=== PATIENT | male | born 1985 | race Two or more races ===

== ENCOUNTER 2018-09-17 22:42 | Observation (INO) | payer OTHER ==
[2018-09-17] MEDS ORDERED: NS 0.9% 1000 ML** 1,000 ML IV ONE (23:00)
[2018-09-17] MEDS ORDERED: Morphine 4 MG/ML VIAL (1 ml) 4 MG/ML VIAL IV ONE (23:01)
[2018-09-17] MEDS ORDERED: Ketorolac INJ* 30 MG/ML 1 ML VIAL IV PUSH ONE (23:01)
[2018-09-17] MEDS ORDERED: Metoclopramide IV* 5 MG/ML 2 ML VIAL IV SLOW PU ONE (23:01)
--- NOTE | 2018-09-17 23:13 | ED ---
Abdominal Pain/Male - HPI Summary HPI Summary: This patient is a 33 year old female presenting to [facility] with a chief complaint of right flank pain. The patient was seen here yesterday diagnosed with a 5.3mm kidney stone. The patient states he has experienced increased pain, nausea, and vomiting since being discharged last night. He rates his pain 10/10 in severity. - History of Current Complaint Chief Complaint: EDFlankPain Stated Complaint: "RT SIDED ABD PAIN PER PT" Time Seen by Provider: 09/17/18 22:54 Hx Obtained From: Patient Timing: Intermittent Severity Initially: Severe Severity Currently: Severe Pain Intensity: 10 Pain Scale Used: 0-10 Numeric Radiates to: Flank - Allergies/Home Medications Allergies/Adverse Reactions: Allergies Allergy/AdvReac Type Severity Reaction Status Date / Time No Known Allergies Allergy Verified 09/17/18 22:47 PMH/Surg Hx/FS Hx/Imm Hx Endocrine/Hematology History: Denies: Hx Diabetes Cardiovascular History: Denies: Hx Coronary Artery Disease History: Denies: Hx Kidney Stones Infectious Disease History: No Infectious Disease History: Denies: Traveled Outside the [place] in Last 30 Days - Family History Known Family History: Negative: Cardiac Disease - Social History Alcohol Use: Rare Hx Substance Use: No Substance Use Type: Reports: None Hx Tobacco Use: No Smoking Status (MU): Never Smoked Tobacco Review of Systems Positive: Vomiting, Nausea Positive: flank pain All Other Systems Reviewed And Are Negative: Yes Physical Exam - Summary Physical Exam Summary: VITAL SIGNS: Reviewed. GENERAL: Patient is a well-developed and nourished MALE who is lying comfortable in the stretcher. Patient is not in any acute respiratory distress. HEAD AND FACE: No signs of trauma. No ecchymosis, hematomas or skull depressions. No sinus tenderness. EYES: PERRLA, EOMI x 2, No injected conjunctiva, no nystagmus. EARS: Hearing grossly intact. Ear canals and tympanic membranes are within normal limits. MOUTH: Oropharynx within normal limits. NECK: Supple, trachea is midline, no adenopathy, no JVD, no carotid bruit, no c- spine tenderness, neck with full ROM CHEST: Symmetric, no tenderness at palpation LUNGS: Clear to auscultation bilaterally. No wheezing or crackles. CVS: Regular rate and rhythm, S1 and S2 present, no murmurs or gallops appreciated. ABDOMEN: Soft, non-tender. No signs of distention. No rebound no guarding, and no masses palpated. Bowel sounds are normal. EXTREMITIES: FROM in all major joints, no edema, no cyanosis or clubbing. NEURO: Alert and oriented x 3. No acute neurological deficits. Speech is normal and follows commands. SKIN: Dry and warm Triage Information Reviewed: Yes Vital Signs On Initial Exam: Initial Vitals Temp Pulse Resp BP Pulse Ox 98.3 F 120 18 158/106 95 09/17/18 22:45 09/17/18 22:45 09/17/18 22:45 09/17/18 22:45 09/17/18 22:45 Vital Signs Reviewed: Yes Diagnostics - Vital Signs Vital Signs Temp Pulse Resp BP Pulse Ox 09/17/18 22:45 98.3 F 120 18 158/106 95 - Laboratory Lab Statement: Any lab studies that have been ordered have been reviewed, and results considered in the medical decision making process. Abdominal Pain Male Course/Dx - Course Course Of Treatment: This patient is a 33 year old male presenting to [facility] with a chief complaint of right flank pain. This patient was diagnosed with a 5.3 mm kidney stone yesterday. Dr. Morrison, Urology, called ahead of the visit and said he would place a stent tomorrow. Therefore the patient will be admitted for pain management pending the stent placement. Dr. Wiggins, hospitalist , accepted the patietn for admission. This plan was discussed with the patient and he was agreeable with this paln. - Diagnoses Provider Diagnoses: Urethral stone - Provider Notifications Discussed Care Of Patient With: Ephraim Morrison - Urology Instructed by Provider To: Other - Will place stent tomorrow. Discharge - Sign-Out/Discharge Documenting (check all that apply): Patient Departure - Admission Patient Received Moderate/Deep Sedation with Procedure: No - Discharge Plan Condition: Stable Disposition: ADMITTED TO [facility] Referrals: [facility] - Kar OSWALD [Z.BUSINESS, APPLICATION, OTHER] - - Attestation Statements Document Initiated by Scribe: Yes Documenting Scribe: Haris Eden Provider For Whom Scribe is Documenting (Include Credential): Stephanie Willams MD Scribe Attestation: Haris Saini, scribed for Stephanie Willams MD on 09/17/18 at 2319. Status of Scribe Document: Ready
[2018-09-17] MEDS ORDERED: Acetaminophen TAB* 325 MG PO PRN (23:16)
[2018-09-17] MEDS ORDERED: Ondansetron INJ* 2 MG/ML VIAL IV PRN (23:16)
[2018-09-17] MEDS ORDERED: Ketorolac INJ* 15 MG/ML 1 ML VIAL IV PUSH PRN (23:19)
[2018-09-17] MEDS ORDERED: Morphine INJ* 2 MG/ML 1 ML SYRINGE (TWO MG - NEW SYRINGE VERSION) IV PRN (23:21)
[2018-09-17] MEDS ORDERED: NS 0.9% 1000 ML** 1,000 ML IV SCH (23:30)
[2018-09-17 23:42] LABS: ABS Lymphocytes 0.9 10^3/ul (1.0-4.8); ABS Monocytes 0.9 10^3/ul (0-0.8); ABS Neutrophils 9.1 10^3/ul (1.5-7.7); Eosinophil % 0.4 %; Hematocrit 43 % (42-52); Hemoglobin 14.1 g/dL (14.0-18.0); Lymphocyte % 8.4 %; Mean Corpuscular HGB Conc 33 g/dL (31-36); Mean Corpuscular Hemoglobin 26 pg (27-31); Mean Corpuscular Volume 80 fL (80-94); Mean Platelet Volume 7.7 fL (7.4-10.4); Nucleated Red Blood Cells % 0.1; Platelet Count 299 10^3/uL (150-450); Red Blood Count 5.35 10^6 /uL (4.18-5.48); Red Cell Distribution Width 14 % (10.5-15)
[2018-09-18] LABS: BUN/Creatinine Ratio 12.7 (8-20); Calcium 9.6 mg/dL (8.6-10.3); EGFR African American 78.8 (>60); EGFR Non-African American 65.1 (>60)
[2018-09-18 00:39] LABS: Urine Appearance Cloudy; Urine Bacteria Absent (Absent); Urine Bilirubin Negative (Negative); Urine Blood 3+ (Negative); Urine Color Yellow; Urine Glucose Negative (Negative); Urine Ketones Negative (Negative); Urine Nitrite Negative (Negative); Urine Protein Negative (Negative); Urine Red Blood Cell 3+(>10/hpf) (Absent); Urine Specific Gravity 1.011 (1.010-1.030); Urine Urobilinogen Negative (Negative); Urine White Blood Cell 1+(6-10/hpf) (Absent)
[2018-09-18] MEDS ORDERED: cefTRIAXone(*) 1 GM in NS 0.9% 50 ML* 50 ML IVPB SCH (00:45)
--- NOTE | 2018-09-18 02:26 | HP ---
CC: Dr. Morrison; [facility] * HISTORY AND PHYSICAL: DATE OF ADMISSION: 09/17/18 PRIMARY CARE PROVIDER: [facility]. CHIEF COMPLAINT: Right flank pain. HISTORY OF PRESENT ILLNESS: Mr. Mckenzie is a 33-year-old male with history of nephrolithiasis, but he always was able to spontaneously pass the stone, who presented yesterday with right flank pain. He was prescribed Percocet and Flomax and advised to keep hydrated. He was discharged home at this point, but at home he continued to have intermittent pain that was constant in the afternoon hours of 09/17/18. Currently, the patient has received a dose of Toradol and the pain basically resolved. He describes the pain as right flank pain radiating to his right groin. He denies any nausea or vomiting. He had been afebrile. Yesterday, a CT scan showed right-sided ureteral stone, [address] Morrison was notified by Dr. Willams from the emergency department and asked medicine service to admit the patient. The plan is for the patient to undergone cystoscopy tomorrow morning. PAST MEDICAL HISTORY: 1. History of recurrent nephrolithiasis. 2. History of bicuspid aortic valve. MEDICATIONS: 1. Flomax 0.4 mg daily. 2. Percocet 10/325 mg 1 tablet every 8 hours p.r.n. ALLERGIES: No known drug allergies. FAMILY HISTORY: Both parents with hypertension and osteoarthritis. Father with history of bicuspid aortic valve also. 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 His surrogate decision maker is his , Nicole Chairez. The patient denies any tobacco, alcohol, or drug use. REVIEW OF SYSTEMS: Please see history of present illness. All the remaining 12 systems were reviewed with the patient and were otherwise negative. PHYSICAL EXAMINATION GENERAL: The patient is a very pleasant 33-year-old male who is in no acute distress, alert, awake, and oriented x3. VITAL SIGNS: Blood pressure of 147/86, heart rate of 90 and regular, respiratory rate 18, oxygen saturation 96% on room air, temperature 98.3. HEENT: Head: Atraumatic, normocephalic. Eyes: Pupils are equal, reactive to light and accommodation. Oropharynx clear. Mucosa moist. NECK: Supple. No JVD, no bruits bilaterally. RESPIRATORY: Clear to auscultation bilaterally. CARDIOVASCULAR: Regular rate and rhythm. No murmurs. ABDOMEN: Soft, nontender. Bowel sounds are present in all 4 quadrants. On evaluation of bilateral flanks, there is no CVA tenderness bilaterally. EXTREMITIES: There is no edema. Pulses are +2 bilaterally. No clubbing or cyanosis. NEUROLOGIC: On neuro evaluation, speech is clear. Cranial nerves II through XII grossly intact. Motor strength is 5/5 bilaterally. LABORATORY DATA/DIAGNOSTIC STUDIES: The patient's CBC showed a white blood cell count of 11.0, hemoglobin of 14.1, hematocrit 43, and platelets 299. The patient's chemistry was obtained yesterday, it showed sodium of 138, potassium 3.6, chloride 104, carbon dioxide 26, BUN 13, creatinine 1.03. Today's chemistry is still pending. The patient's liver function profile was basically unremarkable with slight elevation of ALT of 61. Urinalysis from yesterday showed crusty blood and otherwise unremarkable. CT obtained yesterday of the abdomen and pelvis, impression, "there is a 5 mm x 3 mm calculus in the right ureter with right hydronephrosis at the L3-L4 level. Other nonobstructive calculi are noted in the right kidney and left kidney. Left kidney shows no hydronephrosis." ASSESSMENT AND PLAN: As follows: 1. The patient has obstructing right-sided ureteral calculus with hydronephrosis. The patient is going to be placed on overnight observation with cystoscopy planned with Dr. Morrison in the morning. He is going to be placed on n.p.o. and treated with intermittent Toradol. I will place the patient on intravenous hydration. The patient meets SIRS criteria, but I do not believe he is septic. I suspect his heart rate is due to pain. Nevertheless, blood cultures will be obtained. The patient is going to receive 1 empiric dose of ceftriaxone. I do not believe that he needs bolusing with IV fluids beyond the 1 L that he received in the ED, but he is going to be placed on continuous intravenous hydration. 2. With DVT prophylaxis, the patient is going to be placed on ambulation as tolerated. He is low risk. TIME SPENT: Approximately 65 minutes were spent on admission of this patient, more than half of that time was spent [id number] with the patient during the interview and physical exam. [id number]/[facility] #: [id number] KODAK
[2018-09-18] MEDS ORDERED: Dexamethasone IV* 4 MG/ML 1 ML (4 MG) IV SLOW PU ONE (08:11)
[2018-09-18] MEDS ORDERED: Famotidine IV* 10 MG/ML 2 ML (20 mg) IV ONE (08:11)
[2018-09-18] MEDS ORDERED: Buffered Lidocaine 1% SYRIN* 1 ML/SYRINGE INTRADERM ONE (08:11)
[2018-09-18] MEDS ORDERED: Lactated Ringers 1000 ML Bag* 1,000 ML IV SCH ×2 (09:00→11:15)
[2018-09-18] MEDS ORDERED: cefTRIAXone(*) 1 GM ADVAN/BAG ONE (09:30)
[2018-09-18] MEDS ORDERED: Dexamethasone IV* 4 MG/ML 1 ML (4 MG) ONE (09:30)
[2018-09-18] MEDS ORDERED: Famotidine IV* 10 MG/ML 2 ML (20 mg) ONE (09:31)
[2018-09-18] MEDS ORDERED: Midazolam* 1 MG/ML 2 ML VIAL (2 MG) ONE (09:50)
[2018-09-18] MEDS ORDERED: fentaNYL* 50 MCG/ML 2 ML VIAL (100 MCG VIAL) ONE (09:50)
[2018-09-18] MEDS ORDERED: Iohexol 180 (CONTRAST) 10 ML SDV IV ONE (10:10)
[2018-09-18] MEDS ORDERED: Propofol* 10 MG/ML 20 ML BTL ONE (10:24)
[2018-09-18] MEDS ORDERED: Lidocaine 2% PF * 5 ML VIAL ONE (10:24)
[2018-09-18] MEDS ORDERED: Ketorolac INJ* 30 MG/ML 1 ML VIAL ONE (10:47)
[2018-09-18] MEDS ORDERED: Ondansetron INJ* 2 MG/ML VIAL ONE (10:47)
[2018-09-18] MEDS ORDERED: DiMENhydriNATE IV* 50 MG/ML VIAL IV PUSH PRN (11:02)
[2018-09-18] MEDS ORDERED: Naloxone* 0.4 MG/ML 1 ML VIAL IV PRN (11:02)
[2018-09-18] MEDS ORDERED: fentaNYL* 50 MCG/ML 2 ML VIAL (100 MCG VIAL) IV PRN (11:02)
[2018-09-18] MEDS ORDERED: oxyCODONE/Acetamin 5/325 MG* TAB PO PRN (11:15)
[2018-09-18 12:20] VITALS: BP 126/82
--- NOTE | 2018-09-18 16:07 | OP ---
DATE OF OPERATION: 09/18/18 - ROOM #339 DATE OF : 81 SURGEON: Ephraim Morrison MD ANESTHESIOLOGIST: Dr. Ricco Rutledge. ANESTHESIA: General. PRE-OP DIAGNOSES: 1. Right renal colic. 2. Proximal right ureteral calculus (6 mm). POST-OP DIAGNOSIS: 1. Right renal colic. 2. Proximal right ureteral calculus (6 mm). OPERATIVE PROCEDURE: 1. Cystoscopy. 2. Right retrograde pyelography. 3. Insertion of right ureteral stent (6-Panamanian). INDICATIONS: Mr. Mckenzie is a 33-year-old male who is a known stone former who presented to the emergency room two days ago with symptoms of right renal colic. He did not have any fever or chills. Non-contrast CT of the abdomen and pelvis showed a 6 x 3 mm calculus in the proximal right ureter associated with mild hydronephrosis. No other abnormalities were noted. Patient was given tamsulosin and pain medications and discharged home. He came back last night with recurrence of this severe renal right colic and was admitted by the hospitalist service for pain control, hydration and observation for possible sepsis. He has been afebrile. A KUB done this morning did not clearly show a calculus. He has not passed his stone. Because of the above history and findings, patient is taken to the operating room for right ureteral stent placement. PATHOLOGY AT CYSTOSCOPY: The penile and bulbar urethrae looked normal. The prostatic urethra was short and open. Examination of the bladder showed normal mucosa. The ureteral orifices looked normal without any edema. No calculi or diverticula or bladder lesions were seen. Upon right retrograde pyelography, there was mild to moderate right hydronephrosis and hydroureter. At fluoroscopy, a calcification was noted in the proximal right ureter about 2- 3 cm distal to the ureteropelvic junction that might represent a calculus. DESCRIPTION OF PROCEDURE: After successful general anesthesia, the patient was placed in the lithotomy position and was prepped and draped for a cystoscopy. Cystoscopy was performed. The bladder was inspected and the above findings were noted. A flexible tip guidewire was then introduced into the right orifice and passed without difficulty into the area of the renal pelvis. An open-ended catheter was fed on top of the guide wire and retrograde pyelography was performed. The above findings were noted. A size 6-Panamanian stent was then placed with the proximal end coiling in the renal pelvis and the distal end coiling inside the bladder. There was good drainage of contrast from the kidney and no extravasation. The patient tolerated the procedure well and left the operating room in good condition. PLAN: To obtain a KUB postoperatively. The patient will need to be brought back in for definitive treatment of the stone. [id number]/[facility] #: [id number] MTDD
--- NOTE | 2018-09-18 20:50 | DS ---
CC: [facility]; Dr. Ephraim Morrison * DISCHARGE SUMMARY: DATE OF ADMISSION: 09/17/18 DATE OF DISCHARGE: 09/18/18 PRIMARY CARE PROVIDER: [facility]. UROLOGIST: Dr. Ephraim Morrison. ATTENDING PHYSICIAN: Dr. Haris Jones * (dictated by Lauren Elias NP). PRIMARY DIAGNOSIS: Right-sided obstructing ureteral calculus with resulting hydronephrosis, status post ureteral stent placement. SECONDARY DIAGNOSES: None. STUDIES WHILE IN THE HOSPITAL: 1. KUB on reads as bilateral small renal calculi without radiographically apparent hydronephrosis or large calcifications overlying the expected location of either ureter or the urinary bladder. 2. KUB on 09/18/18 reads as . The report is not back yet. HISTORY OF PRESENT ILLNESS AND HOSPITAL COURSE: Mr. Mckenzie is a 33-year-old male with past medical history of recurrent nephrolithiasis, who presented to the emergency room on 09/17/18 after being instructed to come to the emergency room by Dr. Morrison. Please see the history and physical by Dr. Wiggins for a complete summary of the events leading up to this hospitalization. In short, the patient has a long history of nephrolithiasis, though typically spontaneously passed his stones. He went to the emergency room on 09/16/18, at which point he was diagnosed with right- sided nephrolithiasis. He was prescribed Percocet and Flomax and discharged home. He continued to have significant pain. Ultimately, Dr. Willams, from the emergency department notified Dr. Morrison of the results of the CT scan from 09/16/[address] Morrison asked the hospitalist service to admit the patient. I will note that the abdomen and pelvis CT from 09/16/18 reads as "there is a 5 mm x 3 mm calculus in the right ureter with right hydronephrosis at the L3-L4 level. Other nonobstructing calculi are noted in the right kidney and left kidney. Left kidney shows no hydronephrosis. Hepatic steatosis is present." The patient had lab work, which was remarkable for a white blood cell count of 11 and a mildly elevated creatinine at 1.2. It appears as though the patient's baseline is around 1.1. He did have a urinalysis, which showed white blood cells and red blood cells, though no bacteria or nitrites. He was noted to have some tachycardia. Ultimately, there was little concern for infection as it is presumed that the tachycardia was simply a response secondary to pain as this resolved with the resolution of pain. The patient had an uneventful night and as of this morning reported feeling well. He reported that his pain which was previously a 10/10 was now completely resolved. He had very mild tenderness to palpation of the right upper and lower quadrants. He was taken to the OR this morning by Dr. Morrison, who placed a right ureteral stent. The operative report is not available at the time of this dictation, though I did speak with Dr. Morrison, who advised that the patient tolerated the procedure well and advised that the patient was stable for discharge home after obtaining a second KUB. The patient is feeling well and is anxious to return home. Physical assessment is benign other than the mild abdominal tenderness. All vital signs have normalized. Mr. Mckenzie is stable for discharge today. Most recent vitals are as follows: Temp 97.6, heart rate 66, respiratory rate 16, oxygen saturation 96% on room air, blood pressure 126/82. DISCHARGE MEDICATIONS: Continued medication: Tamsulosin 0.4 mg p.o. daily. Discontinued medication: Percocet. DISCHARGE PLAN: Mr. Mckenzie will be discharged home. Activity will be as tolerated. Diet will be regular as tolerated. The patient should be sure to keep adequately hydrated. Medications are noted above. The patient can continue Flomax at this point until otherwise directed by Dr. Morrison. He can stop taking Percocet due to the absence of pain at this point. He will need to follow up with his primary care provider in 4 to 7 days and will need to follow up with Dr. Morrison in the next few weeks. Dr. Morrison advised that his office would call the patient for an appointment. The patient should return to the emergency room or nearest hospital for any worsening of symptoms, shortness of breath, lightheadedness, dizziness, chest discomfort, high fever, chills, night sweats, loss of consciousness, or any other worrisome signs or symptoms. DISCHARGE CONDITION: Stable. DISCHARGE DISPOSITION: Home. This is a summarized report of a complex medical history and hospital stay. For further details, please see the entire medical record. TIME SPENT: Approximately 40 minutes was spent on this discharge. LAUREN ELIAS, BESSEMER CONVERTER OPERATOR [id number]/[facility] #: [id number] [facility]
== END 2018-09-18 17:03 | disposition home or self-care (01) ==
LOC: ED 22:42 → SSU 23:16
PROVIDERS: ADMIT Internal Medicine; ATTEND Internal Medicine
DX: N23 Unspecified renal colic (principal); N20.1 Calculus of ureter; Z87.74 Personal history of (corrected) congenital malformations of heart and circulatory system; R11.2 Nausea with vomiting, unspecified; R10.84 Generalized abdominal pain
CPT/HCPCS: 36415; 74018; 74420; 80048; 81003; 81015; 83605; 85025; 87040; 87086; 96361; 96365; 96367; 96375; 99283; C1876; G0378; J0696; J1100; J1885; J2250; J2270; J2405; J2704; J2765; J3010

== ENCOUNTER 2018-09-29 08:11 | Day surgery (SDC) | payer OTHER ==
--- NOTE | 2018-09-21 22:28 | HP ---
HISTORY AND PHYSICAL: DATE OF PLANNED ADMISSION AND SURGERY: 09/29/18 HISTORY OF PRESENT ILLNESS: Mr. Mckenzie is a 33-year-old male who is admitted with a right ureteral calculus, status post placement right ureteral stent, for cystoscopy, right uteroscopy, laser lithotripsy and right ureteral stent exchange. Mr. Mckenzie is a known stone former and had in the past passed ureteral calculi spontaneously. He presented to the ER about 2 weeks ago with symptoms of right renal colic. Non-contrast CT showed a 6 mm calculus in the proximal right ureter. The patient was initially managed conservatively with tamsulosin and pain medications but the pain persisted and he had to be admitted for IV fluid and pain control. On 09/18/18, he underwent cystoscopy and insertion of right ureteral stent. He did very well postoperatively except for the stent discomfort. KUB done postoperatively showed the right ureteral stent in good position and there was a possible radiopaque calculus noted in the mid to proximal right ureter along the ureteral stent. Renal ultrasound done in the office showed the right stent in good position and no calculi seen in the right kidney confirming that the calculus is in the ureter. The patient is now admitted for right ureteroscopy and stone extraction. PAST MEDICAL HISTORY AND SYSTEM REVIEW: The patient has history of bicuspid aortic valve. He is otherwise in excellent health. He is on no chronic medications and he denies any allergies to medications. FAMILY HISTORY: Relevant for both parents who have hypertension. No history of renal calculi. SOCIAL HISTORY: He is a nonsmoker and does not use alcohol or illicit drugs. 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 PHYSICAL EXAMINATION GENERAL: A pleasant, healthy looking male. VITAL SIGNS: Blood pressure 120/80, pulse of 90. HEART: Regular and rhythmic. No murmurs. LUNGS: Clear. ABDOMEN: Soft. No masses, no tenderness. Mild right CVA tenderness. IMPRESSION: Right ureteral calculus, status post placement, right ureteral stent. PLAN: Right ureteroscopy, laser lithotripsy and right ureteral stent exchange. I discussed the above plans with the patient. All his questions were answered. [id number]/[facility] #: [id number] MTDD
[~2018-09-29 08:11] MED LIST: Buffered Lidocaine 1% SYRIN* 1 ML/SYRINGE INTRADERM ONE; Lactated Ringers 1000 ML Bag* 1,000 ML IV SCH; Sodium Citrate/Citric Acid* 15 ML UDC PO ONE
[2018-09-29] MEDS ORDERED: cefTRIAXone(*) 2 GM ADDV.VIAL IVPB ONE (08:38)
[2018-09-29] MEDS ORDERED: Sodium Citrate/Citric Acid* 15 ML UDC ONE (08:38)
[2018-09-29] MEDS ORDERED: Iohexol 180 (CONTRAST) 10 ML SDV IV ONE (09:58)
[2018-09-29] MEDS ORDERED: Propofol* 10 MG/ML 20 ML BTL ONE (10:14)
[2018-09-29] MEDS ORDERED: Lidocaine 2% PF * 5 ML VIAL ONE (10:14)
[2018-09-29] MEDS ORDERED: fentaNYL* 50 MCG/ML 2 ML VIAL (100 MCG VIAL) ONE (10:19)
[2018-09-29 12:26] VITALS: BP 111/91
--- NOTE | 2018-09-29 12:35 | OP ---
OPERATIVE REPORT: DATE OF OPERATION: 09/29/18 DATE OF : 81 SURGEON: Eprhaim Morrison MD ANESTHESIOLOGIST: Augusto Fung DO ANESTHESIA: General. PRE-OP DIAGNOSES: 1. Right ureteral calculus. 2. Status post placement right ureteral stent. POST-OP DIAGNOSES: 1. Right ureteral calculus. 2. Status post placement right ureteral stent. OPERATIVE PROCEDURE: 1. Cystoscopy, right ureteroscopy, and extraction of right ureteral calculus. 2. Right retrograde pyelography and insertion of right ureteral stent (6-[place]er ). INDICATIONS: Mr. Mckenzie is a 33-year-old male who is a known stone former and who was admitted about 2 weeks ago with symptoms of right renal colic and was noted to have a 6-mm calculus in the proximal right ureter. He had urgent placement of right ureteral stent. He did well postoperatively. Followup KUB did not clearly show the calculus, however, renal ultrasound showed no calculus in the renal pelvis indicating the calculus is in the ureter. The patient is admitted for stone extraction. PATHOLOGY AT CYSTOSCOPY: The penile and bulbar urethrae look normal. The distal limb of the stent was seen coming from the right ureteral orifice. There was the expected edema of the bladder mucosa adjacent to the stent. Upon right ureteroscopy, a 6 mm calculus that had the gross appearance of a calcium oxalate stone was noted in the mid ureter. Retrograde pyelography showed minimal fullness. DESCRIPTION OF PROCEDURE: After successful general anesthesia, the patient was placed in the lithotomy position and was prepped and draped for cystoscopy. Cystoscopy was performed and the bladder was inspected and the above findings were noted. The distal limb of the stent was pulled out to the level of the urethral meatus. A flexible tip guidewire was introduced into the lumen of the stent and positioned in the area of the renal pelvis with fluoroscopy guidance. A 6.5-[place] Islander semi-rigid tapered ureteroscope was then introduced inside the bladder. The flexible tip basket was introduced through the port of the urethroscope and its flexible tip was introduced into the right ureter alongside the guidewire. That allowed for atraumatic introduction of the ureteroscope inside the ureter. The calculus was noted in the mid ureter. It was engaged with the basket. Because of the passive dilation of the ureter from the presence of the stent, the stone was extracted with no trauma to the ureter without having to fragment it first. Retrograde pyelography was then performed. A 6-[place] Islander stent was then placed with the proximal end coiling in the renal pelvis and the distal end coiling inside the bladder. There was good drainage of contrast from the kidney and no extravasation. The patient tolerated the procedure well and left the operating room in good condition. The plan is to see the patient next week in the office and the stent will be removed. [id number]/[facility] #: [id number] KODAK
== END 2018-09-29 12:27 | disposition home or self-care (01) ==
LOC: OR 08:11
PROVIDERS: ATTEND Urology
DX: N20.1 Calculus of ureter (principal); Z87.442 Personal history of urinary calculi; Q23.1 Congenital insufficiency of aortic valve; E78.5 Hyperlipidemia, unspecified
CPT/HCPCS: 74420; 82365; 88300; A9270-GY; C1876; J0696; J2704; J3010

== ENCOUNTER 2019-06-10 17:56 | Inpatient (IN) | payer BC, OTHER ==
[2019-06-10] MEDS ORDERED: nitroGLYCERIN DRIP* 25,000 MCG in PREMIX* 0 ML IV ONE (17:59)
[2019-06-10] MEDS ORDERED: Nitroglycerin TAB 0.4 MG* 0.4 MG TAB ONE (17:59)
[2019-06-10] MEDS ORDERED: Heparin for STEMI(*) 5,000 UNITS/ML 1 ML VIAL IV ONE ×2 (17:59)
[2019-06-10] MEDS ORDERED: nitroGLYCERIN DRIP* 25,000 MCG/250 ML BTL ONE ×2 (17:59→18:28)
[2019-06-10] MEDS ORDERED: Aspirin 81 mg CHEW TAB* 81 MG TAB.CHEW ONE (17:59)
[2019-06-10] MEDS ORDERED: Ticagrelor* 90 MG TAB PO ONE ×2 (17:59→18:00)
--- NOTE | 2019-06-10 18:02 | ED ---
HPI Chest Pain - HPI Summary HPI Summary: This patient is a 34 year old male presenting to [facility] with a chief complaint of chest pain. He states it started 45 minutes ago when he was shoveling snow. He reports SOB. 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 He states he had some SOB upon exertion when he was shoveling yesterday, and had to take frequent breaks. He states he did not have chest pain at that time. Patient states he does not smoke. He states a Hx of hypertension that was being monitored but was not taking medications for this. STEMI alert called at 1756 ED Provider saw patient at 1757 - History of Current Complaint Hx Obtained From: Patient Onset/Duration: Started Minutes Ago Timing: Constant - Allergy/Home Medications Allergies/Adverse Reactions: Allergies Allergy/AdvReac Type Severity Reaction Status Date / Time No Known Allergies Allergy Verified 09/29/18 08:52 PMH/Surg Hx/FS Hx/Imm Hx Endocrine/Hematology History: Denies: Hx Diabetes Cardiovascular History: Reports: Hx Hypertension - NO MEDICATION FOR AT THIS TIME, Other Cardiovascular Problems/Disorders - Bicuspid valve-[facility]Y OF [facility] - LAST SEEN 2 YEARS AGO Denies: Hx Coronary Artery Disease, Hx Pacemaker/ICD Respiratory History: Denies: Other Respiratory Problems/Disorders History: Reports: Hx Kidney Stones - RIGHT SIDE Denies: Other Problems/Disorders Musculoskeletal History: Denies: Other Musculoskeletal History Sensory History: Reports: Hx Contacts or Glasses - INSTRUCTS GIVEN Denies: Hx Hearing Aid Opthamlomology History: Reports: Hx Contacts or Glasses - INSTRUCTS GIVEN Neurological History: Reports: Hx Headaches - 2 YEARS AGO Denies: Other Neuro Impairments/Disorders Psychiatric History: Reports: Hx Anxiety - HX OF -NO MEDICATION FOR - Surgical History Surgery Procedure, Year, and Place: 09/18/[place] [facility] [place] Anesthesia Reactions: Yes - HICCUPS - Family History Known Family History: Positive: Cardiac Disease - Brothers, Other - Arthritis - Social History Alcohol Use: Rare Hx Substance Use: No Substance Use Type: Reports: None Hx Tobacco Use: No Smoking Status (MU): Current Some Day Smoker Amount Used/How Often: 1-2 TIMES PER YEAR Have You Smoked in the Last Year: Yes Review of Systems Positive: Chest Pain Positive: Shortness Of Breath All Other Systems Reviewed And Are Negative: Yes Physical Exam - Summary Physical Exam Summary: Appearance: The patient is well-nourished in no acute distress and in no acute pain. Skin: The skin is warm and dry and skin color reflects adequate perfusion. HEENT: The head is normocephalic and atraumatic. The pupils are equal and reactive. The conjunctivae are clear and without drainage. Nares are patent and without drainage. Mouth reveals moist mucous membranes and the throat is without erythema and exudate. The external ears are intact. The ear canals are patent and without drainage. The tympanic membranes are intact. Neck: The neck is supple with full range of motion and non-tender. There are no carotid bruits. There is no neck vein distension. Respiratory: Chest is non-tender. Lungs are clear to auscultation and breath sounds are symmetrical and equal. Cardiovascular: Heart is regular rate and rhythm. There is no murmur or rub auscultated. There is no peripheral edema and pulses are symmetrical and equal. Abdomen: The abdomen is soft and non-tender. There are normal bowel sounds heard in all four quadrants and there is no organomegaly palpated. Musculoskeletal: There is no back tenderness noted. Extremities are non-tender with full range of motion. There is good capillary refill. There is no peripheral edema or calf tenderness elicited. Neurological: Patient is alert and oriented to person, place and time. The patient has symmetrical motor strength in all four extremities. Cranial nerves are grossly intact. Deep tendon reflexes are symmetrical and equal in all four extremities. Psychiatric: The patient has an appropriate affect and does not exhibit any anxiety or depression. Triage Information Reviewed: Yes Vital Signs On Initial Exam: Temp Pulse Resp BP Pulse Ox 97.8 F 79 12 101/69 99 06/10/19 18:00 06/10/19 18:00 06/10/19 18:00 06/10/19 18:00 06/10/19 18:00 Vital Signs Reviewed: Yes Procedures - Sedation Patient Received Moderate/Deep Sedation with Procedure: No Diagnostics - Laboratory Result Diagrams: 06/10/19 18:06/10/19 18:00 Lab Statement: Any lab studies that have been ordered have been reviewed, and results considered in the medical decision making process. - Radiology CXR Radiology Interpretation Completed By: ED Physician Summary of Radiographic Findings: No acute process. Pending official radiologist report. - EKG 1754 Cardiac Rate: NL - 78 BPM EKG Rhythm: Sinus Rhythm Summary of EKG Findings: Inferolateral STEMI. ED Physician has reviewed and interpreted this EKG. Chest Pain Course/Dx - Course Course Of Treatment: STEMI was called when Mr. Mckenzie arrived and an EKG revealed an inferolateral acute NV. Labs and imaging were obtained and he was given Proventil and heparin. He had been given aspirin and nitroglycerin in the ambulance. Nitroglycerin drip was prepared but his blood pressure was about 101 and it was held. Dr. Giordano came to the department along with the catheter team and took him up to the catheter lab. - Diagnoses Provider Diagnoses: STEMI (ST elevation myocardial infarction) During the Visit The Following Alert/Code Occurred: STEMI - Critical Care Time Critical Care Time: 30-74 min Discharge ED - Sign-Out/Discharge Documenting (check all that apply): Patient Departure - Admission, to CATH - Discharge Plan Condition: Stable Disposition: ADMITTED TO [facility] - Billing Disposition and Condition Condition: STABLE Disposition: Admitted to [facility] - Attestation Statements Document Initiated by Cinthia: Yes Documenting Scribe: Haris Eden Provider For Whom Cinthia is Documenting (Include Credential): Richard Llanos MD Scribe Attestation: IHaris, scribed for Richard Llanos MD on 06/10/19 at 1853. Scribe Documentation Reviewed: Yes Provider Attestation: The documentation as recorded by the Haris napier accurately reflects the service I personally performed and the decisions made by me, Richard Llanos MD Status of Scribe Document: Viewed
[2019-06-10 18:11] LABS: ABS Eosinophils 0.2 10^3/ul (0-0.6); ABS Monocytes 0.9 10^3/ul (0-0.8); ABS Neutrophils 4.7 10^3/ul (1.5-7.7); Eosinophil % 2.6 %; Hematocrit 46 % (42-52); Lymphocyte % 34.1 %; Mean Corpuscular HGB Conc 33 g/dL (31-36); Mean Corpuscular Hemoglobin 26 pg (27-31); Mean Corpuscular Volume 81 fL (80-94); Mean Platelet Volume 7.7 fL (7.4-10.4); Platelet Count 316 10^3/uL (150-450); Red Blood Count 5.66 10^6 /uL (4.18-5.48); Red Cell Distribution Width 15 % (10-15); White Blood Count 8.9 10^3/uL (3.5-10.8)
[2019-06-10 18:18] LABS: Activated Partial Thrombo Time 36.2 seconds (26.0-38.0); INR 1.03 (0.82-1.09)
[2019-06-10 18:28] LABS: ALT 61 U/L (7-52); AST 25 U/L (13-39); Albumin 4.7 g/dL (3.2-5.2); Albumin/Globulin Ratio 1.6 (1-3); Alkaline Phosphatase 59 U/L (34-104); Anion Gap 10 mmol/L (2-11); BUN/Creatinine Ratio 11.1 (8-20); Blood Urea Nitrogen 13 mg/dL (6-24); CO2 Carbon Dioxide 26 mmol/L (22-32); Calcium 9.4 mg/dL (8.6-10.3); Chloride 102 mmol/L (101-111); Creatine Kinase 119 U/L (10-223); EGFR African American 85.4 (>60); EGFR Non-African American 70.5 (>60); Glucose 126 mg/dL (70-100); LDL Cholesterol Direct 183 mg/dL; Potassium 3.6 mmol/L (3.5-5.0); Sodium 138 mmol/L (135-145); Total Protein 7.7 g/dL (6.4-8.9)
[2019-06-10] MEDS ORDERED: VERAPAMIL 2.5 MG/ML 2 ML VIAL ** 5 mg/2 ml ONE (18:28)
[2019-06-10] MEDS ORDERED: Midazolam* 1 MG/ML 5 ML VIAL (5 MG) ONE (18:28)
[2019-06-10] MEDS ORDERED: Heparin 2 UNITS/ML IVPREMIX* 2,000 ML IV ONE (18:28)
[2019-06-10] MEDS ORDERED: fentaNYL* 50 MCG/ML 2 ML VIAL (100 MCG VIAL) ONE ×2 (18:28→18:59)
[2019-06-10] MEDS ORDERED: Iohexol 350 (CONTRAST) 200 ML MDV IV ONE ×2 (18:28→18:29)
[2019-06-10] MEDS ORDERED: Heparin(*) 1000 UNIT/ML 10 ML VIAL CATH LAB IV ONE (18:28)
[2019-06-10] MEDS ORDERED: Lidocaine 1% INJ* 10 MG/ML 30 ML SDV ONE (18:28)
[2019-06-10 18:32] LABS: CKMB ng/mL 1.3 ng/mL (0.6-6.3); Troponin I 0.06 ng/mL (<0.03)
[2019-06-10] MEDS ORDERED: Atropine SYRINGE* 0.1 MG/ML 10 ML SYRINGE (1 MG) ONE (19:56)
[2019-06-10] MEDS ORDERED: Norepinephrine VIAL* 1 MG/ML 4 ML VIAL ONE (19:56)
[2019-06-10] MEDS ORDERED: NS 0.9% 1000 ML** 1,000 ML IV SCH (20:45)
[2019-06-10] MEDS ORDERED: Acetaminophen TAB* 325 MG PO PRN (20:45)
[2019-06-10] MEDS ORDERED: Nitroglycerin TAB 0.4 MG* 0.4 MG TAB SL PRN (20:45)
[2019-06-10] MEDS ORDERED: Norepinephrine 16MCG/ML IVPRE* 4,000 MCG/250 ML BAG IV SCH (21:00)
[2019-06-10 21:12] LABS: Cholesterol 271 mg/dL; HDL Cholesterol 33.7 mg/dL; LDL Cholesterol 169 mg/dL; Triglycerides 340 mg/dL
[2019-06-10] MEDS: Ticagrelor* 90 MG TAB PO SCH ×2 (21:42→21:43)
[2019-06-10] MEDS: Atorvastatin* 80 MG TAB PO SCH (21:43)
[2019-06-10] MEDS ORDERED: Potassium Chlor TAB* 20 MEQ TAB.ER PO ONE (22:06)
[2019-06-10 22:07] LABS: Creatine Kinase 965 U/L (10-223)
[2019-06-10 22:13] LABS: CKMB ng/mL 106.5 ng/mL (0.6-6.3)
[2019-06-10 22:15] LABS: Troponin I 12.96 ng/mL (<0.03)
[2019-06-10 22:47] LABS: Magnesium 1.9 mg/dL (1.9-2.7)
[2019-06-10] MEDS ORDERED: Magnesium Sulfate 1 GM IV* 1 GM/100 ML BAG IV ONE (23:00)
--- NOTE | 2019-06-10 23:17 | HP ---
CC: Dr. Cordova * HISTORY AND PHYSICAL: DATE OF ADMISSION: 06/10/19 ARDIOLOGIST: Dr. Cordova. HISTORY OF PRESENT ILLNESS: A 34-year-old presented to the ER with acute inferior wall ST-elevation infarct. He has had a history of effort-related dyspnea and somewhat atypical chest pain for a year or two, he was evaluated as an outpatient in June of 2017 with an echo that showed normal LVEF, bicuspid aortic valve with trace aortic insufficiency and no stenosis, with a 3.6 cm ascending aorta. His exercise stress test 04/28/17 was reported as normal. Maximal stress test with a treadmill score of 11. He had exercise related hypertension. He was recommended to undergo lifestyle changes to modify his exercise induced hypertension and his hyperlipidemia. A few days ago, he was shovelling snow and noticed that he was profoundly dyspneic and had to stop. Today, about 45 minutes before presenting to the ER, he developed severe precordial chest pain, radiating through to his back, into his jaw and into his arms, and he presented to the ER. EKG at 1754 revealed sinus rhythm with ST-elevation in II, III, aVF, V4 through V6, up to 5 mm in lead III with reciprocal ST depression in I, aVL and V2. A STEMI was called. 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 IV nitroglycerin was started in the ER with some reduction in his chest pain, which however persisted. PAST MEDICAL HISTORY: 1. Hyperlipidemia. 2. Hypertension. 3. Bicuspid aortic valve. 4. Apparent history of asthma. 5. Nephrolithiasis. MEDICATIONS: Prehospital medications, apparently none. ALLERGIES: None to medications. FAMILY HISTORY: A brother had a CVA, apparently several of his siblings have bicuspid valves, it is unclear whether they have coronary disease. 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 REVIEW OF SYSTEMS: General: No history of weight loss or fever. OUTSOLES CHANNEL OPENER: No history of TIA or CVA. GI: No history of peptic ulcer disease or bleeding. Heme: No history of anemia or bleeding. Pulmonary: No history of cough, apparent history of asthma. Remainder of review of systems negative. PHYSICAL EXAMINATION GENERAL: He was complaining of moderate chest pain, not in severe distress. VITAL SIGNS: ER BP 101/69, heart rate 68, he is afebrile. HEENT: Normal without xanthelasma, scleral injection or jaundice. EOMs normal. Cranial nerves intact. NECK: JVP normal, carotids normal, no bruits. LUNGS: His lungs were clear to percussion and auscultation. CARDIAC: RV and apex not palpable. Normal heart sounds, regular rhythm, I was unable to hear aortic insufficiency or any other murmur. No gallop. ABDOMEN: Soft, nontender, no bruit. Aorta not palpable. Liver nontender or palpable. Femoral pulses 2+ and no bruits. EXTREMITIES: Radial and pedal pulses normal. No cyanosis, clubbing or edema. NEUROLOGIC: Grossly intact. PSYCH: Appropriately anxious. DIAGNOSTIC STUDIES/LAB DATA: CBC normal, creatinine 1.17 with GFR of 70.5. Potassium 3.6. Lactate elevated at 2.5, random blood sugar elevated at 126. A1c is pending. First troponin positive at 0.6. LDL direct high at 183. EKG as above. Chest x-ray: Portable film suggests some pulmonary congestion on a somewhat underexposed film. BNP pending. IMPRESSION: 1. Acute inferior wall ST-elevation infarct. He is hemodynamically stable, was started on IV nitroglycerin in the emergency room with some symptomatic improvement, underwent emergent catheterization. He had a prior negative maximal stress test apparently without imaging. He has a family history of apparently of a brother with a stroke at a relatively young age, and has known severe hyperlipidemia. Random blood sugar is elevated, A1c pending. He underwent emergent catheterization. 2. Exercise-induced hypertension, currently normotensive. 3. Hyperlipidemia. He will be started on a high dose potent statin. 4. History of nephrolithiasis without any history of hematuria. He has no contraindications to dual antiplatelet therapy. 5. Bicuspid aortic valve, asymptomatic and not currently hemodynamically significant by exam and by echo 1 year ago. [id number]/[facility] #: [id number] [facility]
[2019-06-10] MEDS: Metoprolol Tartrate TAB* 25 MG PO SCH (23:39)
--- NOTE | 2019-06-11 00:15 | CATH ---
CC: Dr. Cordova * STENT REPORT: DATE OF PROCEDURE: 06/10/19 - ROOM #ICU-12 QUARTZ CUTTER: Dr. Cordova. PROCEDURES: 1. Right radial artery access. 2. Bilateral selective coronary cineangiography. 3. Left heart catheterization, left ventriculography. 4. Stent placement to RCA 3 x 20 Synergy drug-eluting stent, stent placement RPDA 2.5 x 15 Orsiro. HISTORY: A 34-year-old male with hyperlipidemia presenting with acute inferior wall ST elevation infarct. A few days ago, he had severe effort-related dyspnea that resolved. He had negative routine stress testing a year ago. PROCEDURE ACCESS: Right radial. SHEATH: 6-F slender. MEDICATIONS: 1. Subcu lidocaine. 2. IV Versed. 3. IV fentanyl. 4. Nitroglycerin 100 mcg IC. 5. Nitroglycerin 300 mcg IA. 6. Verapamil 3 mg IA. 7. Atropine 0.5 mg. 8. Brilinta 180 mg p.o. in the ER. 9. Heparin 7000 units. 10. Levophed titrated for hypotension. DIAGNOSTIC CATHETERS: 5F TIG4, 5FL3.5, 5F pigtail. GUIDING CATHETER: RCA 6-FR4, wire 14 BMW. The RCA occlusion was fairly easily crossed with a BMW wire, was predilated with a 2.5 x 12 mm balloon, and then stented with a 3 x 20 Synergy drug-eluting stent which was post dilated with 3 x 20 NC balloon to 20 atmospheres. The PDA stenosis was then stented with an Orsiro 2.5 x 15 mm drug-eluting stent, which was post dilated with a 2.5 x 15 NC balloon to 18 atmospheres. LV gram was then performed. HEMODYNAMICS: Initial BP 110/71. Levophed was started for hypotension that subsequently developed. Systolic ranged in the 60s to 70s, normalized with Levophed, volume, and discontinuation of IV nitroglycerin. LV pressure 122/38. On pullback, there was a 10 to 12 mm qnky-ko-jcdc gradient. ANGIOGRAPHY: RCA: The RCA is dominant, occluded within a few centimeters of the origin. After revascularization, it is a large right coronary distribution with a moderate PDA that has a proximal 80% stenosis followed by a large posterolateral. There are aekri-di-cgba collaterals to the distal LAD. After stent placement, there is no residual stenosis in the proximal RCA or the RPDA with a good myocardial blush and transseptal collaterals to the apical LAD. Left main: The left main is relatively short, has no stenosis. LAD: It is moderate, has a moderate first diagonal branch which has a proximal 50% stenosis, the LAD is occluded at the diagonal and first septal. There are left-to- left collaterals to the distal LAD. The distal LAD also supplies a small caliber diagonal which may be underfilled. Circumflex: The circumflex is not dominant, is moderate, has a minute first marginal which has 60% proximal stenosis, reference diameter less than a millimeter. The second marginal is moderate, has a 30% stenosis, it is followed by several smaller posterolateral branches. LV gram: There is ectopy, the inferior wall has minimal hypokinesis, there is very localized apical dyskinesis or akinesis, estimated LVEF is 55% to 60%, there is mild dilatation of the ascending aorta, no mitral regurgitation. CONCLUSION: 1. Three-vessel coronary artery disease with culprit RCA occlusion, excellent angiographic result with drug-eluting stent placement in the proximal RCA and RPDA. 2. STUDENT SERVICES REPRESENTATIVE mid LAD with well-developed left and zvzhw-ap-wchw collaterals. 4. Preserved LV systolic function with some mild regional wall motion abnormality inferior wall. 5. Mild aortic dilatation with known history of bicuspid aortic valve. 6. Successful right radial artery access. [id number]/[facility] #: [id number] [place]
[2019-06-11] MEDS ORDERED: Amiodarone DRIP 150 MG in D5W 100 ML *LOADING DOSE* OVER 10 MIN IV ONE (02:45)
[2019-06-11 03:31] LABS: Anion Gap 6 mmol/L (2-11); BUN/Creatinine Ratio 11.9 (8-20); Blood Urea Nitrogen 12 mg/dL (6-24); CO2 Carbon Dioxide 26 mmol/L (22-32); Calcium 8.5 mg/dL (8.6-10.3); Chloride 105 mmol/L (101-111); Creatine Kinase 1385 U/L (10-223); EGFR African American 101.1 (>60); EGFR Non-African American 83.6 (>60); Glucose 119 mg/dL (70-100); Potassium 4.1 mmol/L (3.5-5.0); Sodium 137 mmol/L (135-145)
[2019-06-11 03:36] LABS: CKMB ng/mL 177.5 ng/mL (0.6-6.3)
[2019-06-11 03:43] LABS: Troponin I 34.96 ng/mL (<0.03)
[2019-06-11] MEDS: Metoprolol Tartrate TAB* 25 MG PO SCH ×4 (05:09→21:07)
[2019-06-11] MEDS: Aspirin 81 mg CHEW TAB* 81 MG TAB.CHEW PO SCH (08:36)
[2019-06-11] MEDS: Ticagrelor* 90 MG TAB PO SCH ×2 (08:36→21:06)
--- NOTE | 2019-06-11 10:03 | ECHO ---
*[facility]* [place] [address] Fax #: [phone] Transthoracic Echocardiogram Patient: Daniel Mckenzie : 1985 Study Date: 06/11/2019 Age: 34 Gender: M HR: 60 bpm Height: 66 in /167.6 cm BSA: 2.03 m^2 Weight: 189.6 lb /86.2 kg BMI: 30.7 kg/m^2 *Fixing Carpenter: * Ananya Argueta [facility] *Referring Physician: * Sha Giordano MD *Reading Physician: * Otis Wayne MD Indications: Myocardial Infarction (new). History: Risk factors: Hypertension. Dyslipidemia. Labs, prior tests, procedures, and surgery: Catheterization (06/10/2019). There was a stenosis which was treated with a stent. Conclusions Summary: - Left ventricle: Systolic function is mildly reduced. The estimated ejection fraction is 40-45%. Hypokinesis of the apical myocardium. Hypokinesis of the inferior and inferoseptal myocardium. - Right ventricle: Systolic function is normal. - Mitral valve: There is trace regurgitation. - Aortic valve: There is trace regurgitation. - Tricuspid valve: There is trace regurgitation. - Pulmonary arteries: Systolic pressure can not be accurately estimated. - Study data: No prior study is available for comparison. Study data: Transthoracic echocardiogram. Procedure: Transthoracic echocardiography was performed. Image quality was good. Complete 2D, spectral Doppler, and color flow Doppler. Location: ICU Patient status: Inpatient. Patient room number: 12. No prior study is available for comparison. Rhythm: Normal sinus rhythm. Findings Left ventricle: The cavity size is normal. There is focal basal hypertrophy. Systolic function is mildly reduced. The estimated ejection fraction is 40-45%. Regional wall motion abnormalities: Hypokinesis of the apical myocardium. Hypokinesis of the inferior and inferoseptal myocardium. Left ventricular diastolic function parameters are normal. Right ventricle: The cavity size is normal. Systolic function is normal. Left atrium: The atrium is normal in size. Right atrium: The atrium is normal in size. Mitral valve: The leaflets are normal thickness. There is no evidence of stenosis. There is trace regurgitation. Aortic valve: The valve is bicuspid. The leaflets are normal thickness. There is no evidence of stenosis. There is trace regurgitation. Tricuspid valve: The leaflets are normal thickness. There is no evidence of stenosis. There is trace regurgitation. Pulmonic valve: The leaflets are normal thickness. There is no evidence of stenosis. There is trace regurgitation. Pericardium: There is no significant pericardial effusion. Pulmonary arteries: The main pulmonary artery is normal-sized. Systolic pressure can not be accurately estimated. Systemic veins: Inferior vena cava: The vessel is normal in size. There is (< 50%) respiratory change in the IVC dimension. Measurements Left ventricle Value Ref Aortic valve Value Ref QIANA, LAX 4.7 cm 4.2 - 5.8 Ania diam, ED 2.3 cm ---- ESD, LAX 3.3 cm 2.5 - 4.0 Peak v, S 1.1 m/sec ---- FS, LAX 30 % 25 - 43 VTI, S 25.0 cm ---- PW, ED, LAX 1.0 cm 0.6 - 1.0 Mean grad, S 3.0 mm Hg ---- E', lat ania, TDI (L) 8.0 cm/sec >=10.0 Peak grad, S 5.0 mm Hg - --- E/e', lat ania, 6 LVOT/AV, VTI ratio 0.52 ---- TDI E', med ania, TDI 8.0 cm/sec >=7.0 Mitral valve Value R ef E/e', med ania, 6 Peak E 0.5 m/sec ---- TDI Peak A 0.3 m/sec ---- E', avg, TDI 8.0 cm/sec Decel time 349 ms ---- E/e', avg, TDI 6 <=14 Peak E/A ratio 1.7 - --- LVOT Value Ref Pulmonic valve Value Ref Peak reddy, S 0.6 m/sec Peak v, S 0.5 m/sec ---- VTI, S 13.0 cm Peak grad, S 1.0 mm Hg ---- Peak grad, S 1 mm Hg Mean grad, S 1 mm Hg Aortic root Value Ref Root diam 3.0 cm <3.7 Ventricular septum Value Ref IVS, ED (H) 1.2 cm 0.6 - 1.0 Ascending aorta Value Ref AAo AP diam, S 2.8 cm ---- Right ventricle Value Ref AAo AP diam/bsa, S 1.4 cm/m^2 ---- QIANA, LAX 2.4 cm QIANA major ax, A4C (L) 2.3 cm 5.9 - 8.3 Aortic arch Value Ref Arch diam 2.3 cm ---- Left atrium Value Ref AP dim, ES 3.30 cm 3.00 - Inferior vena cava Value Ref 4.00 Diam 1.7 cm ---- ML dim, A4C 4.6 cm SI dim, A4C 4.7 cm Pulmonary veins Value Ref Vol/bsa, ES, 2-p 22 ml/m^2 16 - 34 Peak v, S 0.4 m/sec ---- Peak v, D 0.3 m/sec ---- Right atrium Value Ref Peak S/D ratio 1.31 ---- SI dim, ES 4.2 cm 3.4 - 5.3 A rev duration 90 ms ---- ML dim, ES, A4C 2.7 cm 2.6 - 4.4 Estimated RAP 8 mm Hg Legend: (L) and (H) johnie values outside specified reference range. Prepared and electronically signed by Otis Wayne MD 06/11/2019 10:03
[2019-06-11 10:27] LABS: Creatine Kinase 1188 U/L (10-223)
[2019-06-11 10:31] LABS: Troponin I 25.59 ng/mL (<0.03)
[2019-06-11 10:32] LABS: CKMB ng/mL 140.7 ng/mL (0.6-6.3)
[2019-06-11] MEDS: Atorvastatin* 80 MG TAB PO SCH (16:34)
[2019-06-12] MEDS: Metoprolol Tartrate TAB* 25 MG PO SCH (05:35)
[2019-06-12 06:02] LABS: BUN/Creatinine Ratio 15.5 (8-20); EGFR African American 98.9 (>60); EGFR Non-African American 81.7 (>60); Potassium 3.8 mmol/L (3.5-5.0)
[2019-06-12] MEDS: Ticagrelor* 90 MG TAB PO SCH ×2 (08:22→20:35)
[2019-06-12] MEDS: Aspirin 81 mg CHEW TAB* 81 MG TAB.CHEW PO SCH (08:22)
[2019-06-12] MEDS ORDERED: Influenza VAC *QUAD* 2019-20* 0.5 ML SYRINGE IM ONE (09:00)
[2019-06-12] MEDS ORDERED: Metoprolol Tartrate TAB* 25 MG PO ONE (11:00)
[2019-06-12] MEDS: Atorvastatin* 80 MG TAB PO SCH (17:01)
[2019-06-12] MEDS: Metoprolol Succinate XL TAB* 25 MG PO SCH (20:35)
[2019-06-13 06:43] LABS: BUN/Creatinine Ratio 14.4 (8-20); Calcium 9.7 mg/dL (8.6-10.3); EGFR African American 97.8 (>60); EGFR Non-African American 80.8 (>60); Potassium 4.1 mmol/L (3.5-5.0)
[2019-06-13] MEDS: Aspirin 81 mg CHEW TAB* 81 MG TAB.CHEW PO SCH (07:31)
[2019-06-13] MEDS: Ticagrelor* 90 MG TAB PO SCH ×2 (07:31→21:45)
[2019-06-13] MEDS: Metoprolol Succinate XL TAB* 25 MG PO SCH ×2 (07:31→21:45)
[2019-06-13] MEDS: Atorvastatin* 80 MG TAB PO SCH (16:34)
[2019-06-14] MEDS: Ticagrelor* 90 MG TAB PO SCH (08:49)
[2019-06-14] MEDS: Aspirin 81 mg CHEW TAB* 81 MG TAB.CHEW PO SCH (08:49)
[2019-06-14] MEDS: Metoprolol Succinate XL TAB* 25 MG PO SCH (08:49)
[2019-06-14 12:10] VITALS: BP 106/67
--- NOTE | 2019-06-14 12:11 | DS ---
CC: [facility]; Dr. Addi Cordova * DISCHARGE SUMMARY: DATE OF ADMISSION: 06/10/19 DATE OF DISCHARGE: 06/14/19 ATTENDING PHYSICIAN: Dr. Matt Bonilla, Cardiology.* (DICTATED BY EWELINA PARRA NP) PRIMARY CARE PHYSICIAN: None listed. We will establish the patient with [facility]. PRIMARY WRAPPER LAYER AND EXAMINER SOFT WORK: Dr. Addi Cordova. ADMITTING DIAGNOSES: 1. Inferior ST-segment elevation myocardial infarction. 2. History of hypertension. 3. History of bicuspid aortic valve. 4. History of hyperlipidemia. 5. History of asthma. DISCHARGE DIAGNOSES: 1. Inferior acute ST-segment elevation myocardial infarction, status post PTCA , GUSTAVO with 3 x 20 mm Synergy drug-eluting stent to RCA. A 2.5 x 15 mm drug- eluting stent to PDA. LVEF 40% to 45% with hypokinesis involving inferior, inferoseptal myocardium and apical hypokinesis. The patient has known residual chronic total occlusion mid LAD with well-developed left and [id number] collaterals in addition to 60% proximal left circumflex lesion, on aspirin, Brilinta, metoprolol, and atorvastatin therapy. We will need close followup to establish whether or not to stage intervene circumflex. 2. Newly found coronary artery disease, on aspirin, statin, Brilinta, and beta blockade therapy; not on TUYET inhibitor therapy due to relative hypotension. 3. Ischemic cardiomyopathy, LVEF 40% to 45%, on metoprolol 25 mg p.o. b.i.d., not on TUYET inhibitor therapy due to blood pressure. We will follow up outpatient. Compensated upon physical examination. 4. History of hyperlipidemia, now on high-intensity statin therapy. 5. History of hypertension, currently normotensive with periods of hypotension , on metoprolol 25 mg b.i.d. 6. Elevated hemoglobin A1c. Hemoglobin A1c during this admission was 6.1%. He is to follow up for consideration of initiating SGLT2 inhibitor given recent myocardial infarction with ischemic cardiomyopathy. PROCEDURES PERFORMED: The patient had a left heart catheterization performed by Dr. Sha Giordano on 06/10/19; per report, a 6-Albanian sheath catheter was placed into the right radial artery. LV gram revealed minimal hypokinesis involving the inferior wall, there was very localized apical dyskinesis or akinesis, LVEF 55% to 60% with mild dilatation involving the ascending aorta, no mitral regurgitation. 1. Left main: Relatively short, no stenosis. 2. LAD: Moderate, has a moderate first diagonal branch which has proximal 50% stenosis, the LAD is occluded at the diagonal and first septal. There are no left- to-left collaterals to the distal LAD. The distal LAD also supplies a small caliber diagonal which may be underfilled. 3. Left circumflex is not dominant, is moderate, has a first marginal branch with 60% proximal stenosis. Reference diameter less than a millimeter. Second marginal is moderate, has a 30% stenosis, it is followed by several small posterolateral branches. 4. Right coronary artery: RCA is dominant, occluded within the first few centimeters of the origin. After revascularization, it is a large right coronary distribution with a moderate PDA that has proximal 80% stenosis followed by a large posterolateral. There are [id number] collaterals to the distal LAD. After stent placement, there is no residual stenosis in the proximal RCA or the right PDA with good myocardial blush and transseptal collaterals to the apical LAD. INTERVENTIONS PERFORMED: The patient underwent successful PTCA, GUSTAVO with 3 x 20 mm Synergy drug-eluting stent to right coronary artery followed by 2.5 x 15 mm drug- eluting stent to PDA. COMPLICATIONS: None thus far. COURSE OF HOSPITAL STAY: This is a pleasant 34-year-old male patient with a notable history of bicuspid aortic valve, hypertension, hyperlipidemia, with family history involving premature cerebrovascular disease, who [facility] due to complaints of chest pain with associated dyspnea. A STEMI alert was called due to ECG in the emergency department revealing ST segment elevation in lead II, III, aVF, V4 through V6 up to 5 mm in lead III with reciprocal ST depression in lead I, aVL and V2. He received heparin, Brilinta, and aspirin therapy and was taken urgently to the metallurgical lab technician where he underwent the above- mentioned procedure with intervention to the proximal RCA and PDA. Post procedure, the patient was transferred to the ICU and troponin peaked at 34.9 on 06/11/19. Echocardiogram was updated on 06/11; per report, LVEF 40% to 45% with hypokinesis involving the apical myocardium, hypokinesis involving the inferior and inferoseptal myocardium. There was trace mitral and aortic insufficiency, trace tricuspid insufficiency. He has a known bicuspid aortic valve. He was continued on aspirin and Brilinta therapy and was placed on metoprolol 25 mg p.o. b.i.d. Unfortunately, the patient has been normotensive with periods of relative hypotension with associated lightheadedness, thus TUYET inhibitor therapy was not able to be initiated at this time. This can be addressed in followup. The patient's hemoglobin A1c was 6.1%, LDL 169, again troponin peaked at 34.9 on 06/11/19. The patient has been stable, ambulating in the halls with no difficulty. He does have known residual left circumflex disease and INSURANCE CLAIMS CLERK lesion involving the LAD with well established collateral flow. The patient is to be discharged home today. Most recent set of blood work was on 06/13/19: Sodium 135, potassium 4.1, chloride 104, carbon dioxide 23, BUN 15, creatinine 1.04. Right radial access site examined, 3+ radial pulse, no hematoma, nontender to palpation. The patient is stable and ready for discharge. Discharge Activity Restrictions; patient was advised to not drive until he is cleared by cardiology in follow up, He was advised to not lift more than 10 lbs for 7-10 days, he may shower but not soak right radial access site wound. FOLLOWUP INSTRUCTIONS: The patient is to follow up with: 1. Dr. Sha Giordano on 06/20/19 at 3:20 p.m. 2. Primary catering driver, Dr. Addi Cordova, 07/03/19 at 9:40 a.m. 3. [facility]. BLOOD WORK TO BE OBTAINED UPON DISCHARGE: None. DISCHARGE CONDITION: Stable to be discharged home. DISCHARGE MEDICATIONS: 1. Aspirin 81 mg p.o. daily. 2. Brilinta 90 mg p.o. b.i.d. 3. Nitroglycerin 0.4 mg sublingual tablets 1 tablet sublingual q.5 minutes p.r.n. 4. Atorvastatin 80 mg p.o. q.h.s. 5. Tylenol as directed. 6. Metoprolol 25mg PO BID Dr. Matt Bonilla has personally seen and examined the patient and agrees with the above assessment and plan. EWELINA PARRA NP [id number]/[facility] #: [id number] I personally saw and examined the patient and answered all his questions to his satisfaction. I agree with the above note and reviewed the plan with my nurse practioner Ewelina Parra. Follow up appts. have been made as above. BERTIN BONILLA MD, FAC,[facility]
== END 2019-06-14 12:20 | disposition home or self-care (01) | DRG 174 ==
LOC: ED 17:56 → CCHLCR 18:31 → ICU 20:15 → MEDTELE 06-12 11:34
PROVIDERS: ADMIT Internal Medicine Cardiovascular Disease; ATTEND Internal Medicine Cardiovascular Disease
PROC: 4A023N7 Measurement of Cardiac Sampling and Pressure, Left Heart, Percutaneous Approach (ICD-10-PCS; 2019-06-10)
PROC: B2111ZZ Fluoroscopy of Multiple Coronary Arteries using Low Osmolar Contrast (ICD-10-PCS; 2019-06-10)
PROC: B2151ZZ Fluoroscopy of Left Heart using Low Osmolar Contrast (ICD-10-PCS; 2019-06-10)
PROC: 027135Z Dilation of Coronary Artery, Two Arteries with Two Drug-eluting Intraluminal Devices, Percutaneous Approach (ICD-10-PCS; principal; 2019-06-10 18:30)
DX: I21.19 ST elevation (STEMI) myocardial infarction involving other coronary artery of inferior wall (principal); Q23.1 Congenital insufficiency of aortic valve; I25.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 native coronary artery without angina pectoris; I10 Essential (primary) hypertension; E78.5 Hyperlipidemia, unspecified; J45.909 Unspecified asthma, uncomplicated; F41.9 Anxiety disorder, unspecified; I25.5 Ischemic cardiomyopathy; R79.89 Other specified abnormal findings of blood chemistry; I95.9 Hypotension, unspecified; Z87.442 Personal history of urinary calculi; Z79.82 Long term (current) use of aspirin; Z79.02 Long term (current) use of antithrombotics/antiplatelets; Z79.899 Other long term (current) drug therapy
CPT/HCPCS: 36415; 71045; 80048; 80053; 80061; 82550; 82553; 83036; 83605; 83721; 83735; 83880; 84484; 85025; 85610; 85730; 87641; 90686; 93005; 93306; 96372; 99156; 99157; 99285; A9270-GY; C1725; C1769; C1874; C1876; C1887; C9606-RC; J0282; J0461; J1644; J2250; J3010; J3475

== ENCOUNTER 2019-07-21 07:46 | Emergency (ER) | payer BC ==
--- NOTE | 2019-07-21 08:07 | ED ---
HPI Chest Pain - HPI Summary HPI Summary: This patient is a 34 year old male presenting to [facility] with a chief complaint of intermittent chest pain that started yesterday afternoon. He states his left arm is numb from three fingers up to his shoulders, not including the thumb. He had an VA last month and he had 2 stents placed. He states it could be muscle fatigue but wants to be sure due to his previous VA. He rates his pain 3/10 in severity. - History of Current Complaint Chief Complaint: EDChestPainROMI Time Seen by Provider: 07/21/19 07:57 Hx Obtained From: Patient Onset/Duration: Started Hours Ago Timing: Intermittent Pain Intensity: 3 Pain Scale Used: 0-10 Numeric Chest Pain Radiates: Yes Chest Pain Radiates To:: Back - Additional Pertinent History Primary Care Physician: GAB - Allergy/Home Medications Allergies/Adverse Reactions: Allergies Allergy/AdvReac Type Severity Reaction Status Date / Time No Known Allergies Allergy Verified 07/21/19 08:13 Home Medications: Home Medications Aspirin 81 mg CHEW TAB* 81 mg PO DAILY tab.chew 06/14/19 [Rx Confirmed 07/21/19 ] Atorvastatin* [Lipitor 80 MG*] 80 mg PO DAILY@1700 #90 tab 06/14/19 [Rx Confirmed 07/21/19] Metoprolol Succinate XL TAB* [Toprol XL TAB*] 25 mg PO BID #180 tab.xl 06/14/19 [Rx Confirmed 07/21/19] Nitroglycerin TAB 0.4 MG* 0.4 mg SL Q5M PRN #15 tab 06/14/19 [Rx Confirmed 07/20] Ticagrelor* [Brilinta 90 MG*] 90 mg PO BID #60 tab 06/14/19 [Rx Confirmed ] Empagliflozin (NF) [Jardiance] 25 mg PO DAILY 07/21/19 [History Confirmed ] Losartan TAB* [Cozaar TAB*] 25 mg PO DAILY 07/21/19 [History Confirmed 07/21/19] PMH/Surg Hx/FS Hx/Imm Hx Endocrine/Hematology History: Denies: Hx Diabetes, Hx Anemia Cardiovascular History: Reports: Hx Angina, Hx Hypertension - NO MEDICATION FOR AT THIS TIME, Other Cardiovascular Problems/Disorders - Bicuspid valve- [facility]- LAST SEEN 2 YEARS AGO Denies: Hx Auto Implanted Cardiovert Defib, Hx Cardiac Arrest, Hx Congestive Heart Failure, Hx Coronary Artery Disease, Hx Pacemaker/ICD Respiratory History: Denies: Hx Asthma, Hx Chronic Obstructive Pulmonary Disease (COPD), Other Respiratory Problems/Disorders History: Reports: Hx Kidney Stones - RIGHT SIDE Denies: Other Problems/Disorders Musculoskeletal History: Denies: Other Musculoskeletal History Sensory History: Reports: Hx Contacts or Glasses, Hx Hearing Aid Denies: Hx Eye Injury Opthamlomology History: Reports: Hx Contacts or Glasses Denies: Hx Eye Injury Neurological History: Reports: Hx Headaches - 2 YEARS AGO Denies: Hx Migraine, Hx Seizures, Hx Transient Ischemic Attacks (TIA), Other Neuro Impairments/Disorders Psychiatric History: Reports: Hx Anxiety - HX OF -NO MEDICATION FOR - Surgical History Surgery Procedure, Year, and Place: 09/18/18-URETERAL STENT INSERTION- [facility] Hx Anesthesia Reactions: Yes - [facility] Infectious Disease History: No Infectious Disease History: Denies: Hx Clostridium Difficile, Traveled Outside the [place] in Last 30 Days - Family History Known Family History: Positive: Cardiac Disease - Brothers, Other - Arthritis - Social History Alcohol Use: Occasionally Hx Substance Use: No Substance Use Type: Reports: None Hx Tobacco Use: No Smoking Status (MU): Current Some Day Smoker Type: Cigarettes Amount Used/How Often: 1-2 TIMES PER YEAR Have You Smoked in the Last Year: Yes Review of Systems Positive: Chest Pain Positive: Numbness All Other Systems Reviewed And Are Negative: Yes Physical Exam - Summary Physical Exam Summary: Appearance: The patient is well-nourished in no acute distress and in no acute pain. Skin: The skin is warm and dry, and skin color reflects adequate perfusion. HEENT: The head is normocephalic and atraumatic. The pupils are equal and reactive. The conjunctivae are clear and without drainage. Nares are patent and without drainage. Mouth reveals moist mucous membranes, and the throat is without erythema and exudate. The external ears are intact. The ear canals are patent and without drainage. The tympanic membranes are intact. Neck: The neck is supple with full range of motion and non-tender. There are no carotid bruits. There is no neck vein distension. Respiratory: Chest is non-tender. Lungs are clear to auscultation and breath sounds are symmetrical and equal. Cardiovascular: Heart is regular rate and rhythm. There is no murmur or rub auscultated. There is no peripheral edema and pulses are symmetrical and equal. Abdomen: The abdomen is soft and non-tender. There are normal bowel sounds heard in all four quadrants and there is no organomegaly palpated. Musculoskeletal: There is no back tenderness noted. Extremities are non-tender with full range of motion. There is good capillary refill. There is no peripheral edema or calf tenderness elicited. Neurological: Patient is alert and oriented to person, place and time. The patient has symmetrical motor strength in all four extremities. Cranial nerves are grossly intact. Deep tendon reflexes are symmetrical and equal in all four extremities. Psychiatric: The patient has an appropriate affect and does not exhibit any anxiety or depression. Triage Information Reviewed: Yes Vital Signs On Initial Exam: Initial Vitals Temp Pulse Resp BP Pulse Ox 97.0 F 62 16 129/88 98 07/21/19 07:49 07/21/19 07:49 07/21/19 07:49 07/21/19 07:49 07/21/19 07:49 Vital Signs Reviewed: Yes Procedures - Sedation Patient Received Moderate/Deep Sedation with Procedure: No Diagnostics - Vital Signs Vital Signs Temp Pulse Resp BP Pulse Ox 07/21/19 07:49 97.0 F 62 16 129/88 98 - Laboratory Result Diagrams: 07/21/19 07:59 07/21/19 07:59 Lab Statement: Any lab studies that have been ordered have been reviewed, and results considered in the medical decision making process. - Radiology CXR Radiology Interpretation Completed By: Radiologist Summary of Radiographic Findings: No acute cardiopulmonary process by radiograph. ED Provider has reviewed this report. - CT CTA Chest CT Interpretation Completed By: Radiologist Summary of CT Findings: 1. No aortic dissection. 2. Premature coronary artery calcification. 3. The ectatic appearance of the ascending aorta may be related to motion artifact (exam not cardiac gated). If neccessary, could be evaluated by echocardiogram electively. ED Provider has reviewed this report. - EKG 0803 Cardiac Rate: Bradycardia - 52 BPM EKG Rhythm: Sinus Rhythm Summary of EKG Findings: Inferior VA, similar to 06/10/19. ED Physician has reviewed and interpreted this EKG. Chest Pain Course/Dx - Course Course Of Treatment: Mr. Mckenzie came in concerned about chest pain. He had a recent VA about 1 month ago and was stented by Dr. Bonds. He is taking Brylinta and ASA. He complains of some neck pain a couple days ago and some back pain that's coming around to the front as well as some numbness to his left arm and hand. He points to his third fourth and fifth fingers of the left and denies any symptoms in his thumb or index finger he was nontoxic in appearance with stable vitals. EKG was obtained and did not significantly look different from his discharge EKG. His initial troponin was 0.01 and I spoke with Dr. Wayne who felt that if he had repeat troponins that were negative he would be able to go home. He did indeed have 3 troponins all of which were 0.01. Because of the back pain and the numbness a CT was obtained to rule out dissection. It was also negative. This seems as though it's a cervical radicular pain and I recommended follow-up with his PCP. - Diagnoses Provider Diagnoses: Chest pain, Cervical radiculopathy - Provider Notifications Discussed Care Of Patient With: Otis Wayne - Cardiology Time Discussed With Above Provider: 14:32 - Take 3rd Troponin, if negative, patient can be safely discharged with PCP follow up. Discharge ED - Sign-Out/Discharge Documenting (check all that apply): Patient Departure - Discharge - Discharge Plan Condition: Stable Disposition: HOME Patient Education Materials: Cervical Radiculopathy (ED) Referrals: Homar Reardon MD [Primary Care Provider] - 3 Days Additional Instructions: Return to ED with new or worsening symptoms. Follow up with your primary care provider in 1-3 days. - Billing Disposition and Condition Condition: STABLE Disposition: Home - Attestation Statements Document Initiated by Cinthia: Yes Documenting Madiibe: Haris Eden Provider For Whom Cinthia is Documenting (Include Credential): Richard Llanos MD Scribjessica Attestation: I, Haris Eden, scribed for Richard Llanos MD on 07/21/19 at 1536. Scribe Documentation Reviewed: Yes Provider Attestation: The documentation as recorded by the Haris napier accurately reflects the service I personally performed and the decisions made by me, Richard Llanos MD Status of Scribe Document: Viewed
[2019-07-21 08:09] LABS: ABS Eosinophils 0.2 10^3/ul (0-0.6); ABS Lymphocytes 1.9 10^3/ul (1.0-4.8); ABS Monocytes 0.6 10^3/ul (0-0.8); Eosinophil % 2.5 %; Hematocrit 46 % (42-52); Hemoglobin 15.4 g/dL (14.0-18.0); Lymphocyte % 25.1 %; Mean Corpuscular HGB Conc 34 g/dL (31-36); Mean Corpuscular Hemoglobin 27 pg (27-31); Mean Corpuscular Volume 80 fL (80-94); Mean Platelet Volume 8.2 fL (7.4-10.4); Nucleated Red Blood Cells % 0.1; Platelet Count 289 10^3/uL (150-450); Red Blood Count 5.73 10^6 /uL (4.18-5.48); Red Cell Distribution Width 14 % (10-15); White Blood Count 7.8 10^3/uL (3.5-10.8)
[2019-07-21 08:17] LABS: INR 1.04 (0.82-1.09)
[2019-07-21 08:25] LABS: Albumin 4.7 g/dL (3.2-5.2); Albumin/Globulin Ratio 1.6 (1-3); BUN/Creatinine Ratio 12.2 (8-20); Calcium 9.8 mg/dL (8.6-10.3); EGFR African American 87.1 (>60); Globulin 2.9 g/dL (2-4); Total Bilirubin 0.8 mg/dL (0.2-1.0); Total Protein 7.6 g/dL (6.4-8.9)
[2019-07-21 08:28] LABS: Troponin I 0.01 ng/mL (<0.03)
--- OUTSIDE RECORDS SUMMARY | 2019-07-21 09:04 | XMS REPORT | Continuity of Care Document ---
:1985 External Reference #:[id number] Author Name Addi Cordova DO FACC (transmitted by agent of provider Abbie Tomlin ) Address [address] [place] [address] Care Team Providers Name Role Phone Homar Reardon MD - Endocrinology, Care Team Information Pulverizer Feeder Diabetes & Metabolism Problems Active Problems Provider Date Acute myocardial infarction due to Sha Giordano MD, FACC, Onset: 2019 right coronary artery occlusion FSCAI Social History Type Date Description Comments Sex Unknown ETOH Use Occasionally consumes alcohol Socially Tobacco Use Start: Unknown Social smoker 1-2 a year Recreational Drug Use Denies Drug Use Smoking Status Reviewed: 07/12/19 Social smoker 1-2 a year Exercise Type/Frequency Does not exercise Allergies, Adverse Reactions, Alerts Description No Known Drug Allergies Medications Active Medications SIG Qnty Indications Ordering Date Provider Losartan Potassium 1 by mouth every 30tabs I10 Addi Cordova, 07/03/2019 25mg day DO FACC Tablets Tylenol 2 tablets every Unknown 325mg Capsules 4 hours as needed for pain Aspirin 81 Low Dose 1 by mouth every 120units Addi Cordova, day DO FACC 81mg Chewtabs Metoprolol Succinate 1 by mouth twice 180tabs Addi Cordova, ER every day DO FACC 25mg Tablets ER 24HR Atorvastatin Calcium 1 by mouth every 90tabs Addi Cordova, day DO FACC 80mg Tablets Nitrostat dissolve 1 Unknown 0.4mg Tablets tablet under the Sub tongue every 5 minutes up to 3 doses as needed replace every 12 months Brilinta 1 tab by mouth 180tabs Addi Cordoav, 90mg Tablets twice a day DO [facility] Jardiance 1/2 by mouth Unknown 25mg Tablets every day Medications Administered in Office Medication SIG Qnty Indications Ordering Provider Date Technetium TC 99M Addi SHeath Cordova, DO [facility] 07/04/2019 Tetrofosmin, Per Unit Dose Up To 40 Millicuries Injection Technetium TC 99M Addi DestineeHeath Cordova, DO [facility] 07/04/2019 Tetrofosmin, Per Unit Dose Up To 40 Millicuries Injection Immunizations Description No Information Available Vital Signs Date Vital Result Comment 07/12/2019 7:44am Height 65.5 inches 5'5.50" Weight 182.00 lb with shoes Heart Rate 56 /min BP Systolic Sitting 100 mmHg Lue (Regular cuff) BP Diastolic Sitting 70 mmHg Lue (Regular cuff) BP Systolic Standing 98 mmHg BP Diastolic Standing 68 mmHg BMI (Body Mass Index) 29.8 kg/m2 Ejection Fraction 40-45% 06/11/2019 Echocardiogram 07/03/2019 9:50am Height 65.5 inches 5'5.50" Weight 183.00 lb No Shoes BP Systolic Sitting 102 mmHg Lue Reg Cuff BP Diastolic Sitting 64 mmHg Lue Reg Cuff BP Systolic Standing 112 mmHg Lue Reg Cuff BP Diastolic Standing 64 mmHg Lue Reg Cuff Respiratory Rate 14 /min BMI (Body Mass Index) 30.0 kg/m2 Ejection Fraction 40-45% 06/11/2019 Results Test Acquired Date Facility Test Result H/L Range Note Basic Metabolic 07/11/2019 [facility] Sodium 138 mmol/L Normal 135-145 [address] [place] [address] [phone] Potassium 4.0 mmol/L Normal 3.5-5.0 Chloride 105 mmol/L Normal 101-111 Co2 Carbon Dioxide 26 mmol/L Normal 22-32 Anion Gap 7 mmol/L Normal 2-11 Glucose 86 mg/dL Normal 70-100 Blood Urea Nitrogen 17 mg/dL Normal 6-24 Creatinine 1.09 mg/dL Normal 0.67-1.17 BUN/Creatinine Ratio 15.6 Normal 8-20 Calcium 9.5 mg/dL Normal 8.6-10.3 Egfr Non- 76.5 >60 Egfr 92.6 >60 1 Laboratory test 07/11/2019 [facility] Ast (Sgot) 28 U/L Normal 13-[address] [place], [place] [id number] [phone] Alt (SGPT) 55 U/L High 7-52 Creatine Kinase(CK) 125 U/L Normal 10-223 Lipid Profile 07/11/2019 [facility] Triglycerides 134 mg/dL 2 (Trig/Chol/HDL) [address] [place], [place] [id number] [phone] Cholesterol 126 mg/dL 3 HDL Cholesterol 30.5 mg/dL 4 LDL Cholesterol 69 mg/dL 5 1 Because ethnic data is not always readily available, this report includes an eGFR for both -Americans and non- Americans. The National Kidney Disease Education Program (NKDEP) does not endorse the use of the MDRD equation for patients that are not between the ages of 18 and 70, are , have extremes of body size, muscle mass, or nutritional status, or are non- or non-. According to the National Kidney Foundation, irrespective of diagnosis, the stage of the disease is based on the level of kidney function: Stage Description GFR(mL/min/1.73 m(2)) 1 Kidney damage with normal or decreased GFR 90 2 Kidney damage with mild decrease in GFR 60-89 3 Moderate decrease in GFR 30-59 4 Severe decrease in GFR 15-29 5 Kidney failure <15 (or dialysis) 2 Desirable: <150 Borderline High: 150-199 High: 200-499 Very High: >500 3 Desirable: <200 Borderline High: 200-239 High: >239 4 Low: <40 Desirable: 40-60 High: >60 5 Desirable: <100 Near Optimal: 100-129 Borderline High: 130-159 High: 160-189 Very High: >189 Procedures Date Code Description Status 07/04/2019 15004 Stress Test Completed 07/04/2019 91932 Myocardial Perfusion Imaging Tomographic (Spect) Multiple Completed Studies 06/13/2019 40832 EKG, Interpretation Only Completed 06/12/2019 43026 EKG, Interpretation Only Completed 06/11/2019 14265 ECHO Transthorasic Realtime 2D W Doppler & Color Flow Hosp Completed 06/11/2019 53903 EKG, Interpretation Only Completed 06/10/2019 18273 Left Heart Cath. Incl S/I Coronaries, Angio S/I V Gram If Completed Done 06/10/2019 80856 EKG, Interpretation Only Completed 06/10/2019 09058 Revascularization Acute Total/Subtotal Occlusion Completed Medical Devices Description No Information Available Encounters Type Date Location Provider Dx Diagnosis Office Visit 07/12/2019 [facility] Addi Wong Cordova, I25.2 Old myocardial 8:00a Of [facility] DO FACC infarction I25.5 Ischemic cardiomyopathy E78.5 Hyperlipidemia, unspecified I10 Essential (primary) hypertension R73.01 Impaired fasting glucose Q23.1 Congenital insufficiency of aortic valve Office Visit 07/03/2019 10:00a [facility] Addi Wong R07.9 Chest pain , Of [facility] Art, DO unspecified FACC I25.2 Old myocardial infarction E78.5 Hyperlipidemia, unspecified I10 Essential (primary) hypertension I25.5 Ischemic cardiomyopathy R73.01 Impaired fasting glucose Office Visit 06/20/2019 3:40p [facility] Sha Alcala I21.11 [place]emi involving [place] [facility] [place]qu[place], right coronary FACC, FSCAI artery Office Visit 06/14/2019 4:11p [facility] Ewelina Parra, I21.11 Stemi involving [place] [facility] [place] right coronary artery I25.10 Athscl heart disease of [place] coronary artery w/o ang pctrs I25.5 Ischemic cardiomyopathy E78.5 Hyperlipidemia, unspecified Office Visit 06/13/2019 11:45a [facility] Matt Bonds, I21.11 Stemi involving [place] [facility] [place] FACC, right coronary FSCAI artery I25.10 Athscl heart disease of [place] coronary artery w/o ang pctrs Office Visit 06/12/2019 11:47a [facility] Matt Bonds, I21.11 Stemi involving [place] [facility] [place] FACC, right coronary FSCAI artery I25.10 Athscl heart disease of [place] coronary artery w/o ang pctrs Office Visit 06/11/2019 11:40a [facility] Matt Bonds, I21.11 Stemi involving [place] [facility] [place] FACC, right coronary FSCAI artery I25.10 Athscl heart disease of [place] coronary artery w/o ang pctrs Office Visit 06/10/2019 4:13p [facility] Sha Alcala I21.11 Stemi involving [place] [facility] [place] Pas[place]ale, right coronary FACC, FSCAI artery I10 Essential (primary) hypertension E78.5 Hyperlipidemia, unspecified I25.10 Athscl heart disease of [place] coronary artery w/o ang pctrs Assessments Date Code Description Provider 07/12/2019 I25.2 Old myocardial infarction Addi Cordova, DO FACC 07/12/2019 I25.5 Ischemic cardiomyopathy Addimayra Robertsonno, DO FACC 07/12/2019 E78.5 Hyperlipidemia, unspecified Addi SHeath Robertsonno, DO FACC 07/12/2019 I10 Essential (primary) hypertension Addi Robertsonno, DO FACC 07/12/2019 R73.01 Impaired fasting glucose Addi Robertsonno, DO FACC 07/12/2019 Q23.1 Congenital insufficiency of aortic Addi Cordova, DO FACC valve 07/04/2019 R07.9 Chest pain, unspecified Addi SHeath Robertsonno, DO FACC 07/03/2019 R07.9 Chest pain, unspecified Addi SHeath Robertsonno, DO FACC 07/03/2019 I25.2 Old myocardial infarction Addi Cordova, DO FACC 07/03/2019 E78.5 Hyperlipidemia, unspecified Addi S. 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 06/14/2019 I25.5 Ischemic cardiomyopathy Ewelina Parra, [employer] [employer] 06/14/2019 E78.5 Hyperlipidemia, unspecified Ewelina Parra, [employer] 06/13/2019 R94.31 Abnormal electrocardiogram [ECG] [EKG] Landon Berman M.D., FACC, FASIA 06/13/[address] elevation (Stemi) myocardial Matt Bonds M.D., [facility], infarction involving right coronary FSCAI artery 06/13/2019 I25.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 Matt Bonds M.D., FACC, [place] coronary artery without angina FSCAI pectoris 06/12/2019 R94.31 Abnormal electrocardiogram [ECG] [EKG] Landon Berman M.D., [place], FASIA 06/12/[address] elevation (Stemi) myocardial Matt Bonds M.D., [facility], infarction involving right coronary FSCAI artery 06/12/2019 I25.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 Matt Bonds M.D., [facility], [place] coronary artery without angina FSCAI pectoris 06/11/2019 R94.31 Abnormal electrocardiogram [ECG] [EKG] Rodrick Pyle M.D. 06/11/[address] elevation (Stemi) myocardial Otis Wayne M.D. infarction involving right coronary artery 06/11/[address] elevation (Stemi) myocardial Matt Bonds M.D., [facility], infarction involving right coronary FSCAI artery 06/11/2019 I25.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 Matt Bonds M.D., [facility], [place] coronary artery without angina FSCAI pectoris 06/10/2019 R94.31 Abnormal electrocardiogram [ECG] [EKG] Landon Berman M.D., [facility], [facility] 06/10/[address] elevation (Stemi) myocardial Sha Giordano MD, [facility] , infarction involving right coronary FSCAI artery 06/10/2019 I10 Essential (primary) hypertension Sha [facility] MD, [place] 06/10/2019 E78.5 Hyperlipidemia, unspecified Sha Giordano MD, [place] 06/10/2019 I25.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 [place] coronary artery without angina FSCAI pectoris Plan of Treatment 07/12/2019 - Addi Cordova DO FACCI25.2 Old myocardial infarctionFollow up: Schedule cardiac MRI at [facility] (not [facility]) Please give patient number for cardiac rehab Follow up after MRII25.5 Ischemic cardiomyopathyNew Xrays:MRI Cardiac W/ & W/O Contrast, Ordered: 07/12/19E78.5 Hyperlipidemia, [id number] Essential (primary) [id number] Impaired fasting [id number] Congenital insufficiency of aortic valve Functional Status Description No Information Available Mental Status Description No Information Available Referrals Refer to Reason for Referral Status Appt Date Created
--- OUTSIDE RECORDS SUMMARY | 2019-07-21 09:05 | XMS REPORT | Continuity of Care Document ---
:1985 External Reference #:[id number] Author Name Sha Giordano MD, [facility], [facility] (transmitted by agent of provider Alanis Martinez) Address [address] [place] [address] Care Team Providers Name Role Phone Florida Bender MD - Student in an Care Team Information Block Mason [phone] Organized Health Care Education/Training Program Problems Description No Information Available Social History Type Date Description Comments Sex Unknown ETOH Use Occasionally consumes alcohol Socially Tobacco Use Start: Unknown Social smoker 1-2 a year Recreational Drug Use Denies Drug Use Smoking Status Reviewed: 06/20/19 Social smoker 1-2 a year Exercise Type/Frequency Does not exercise Allergies, Adverse Reactions, Alerts Description No Known Drug Allergies Medications Active Medications SIG Qnty Indications Ordering Provider Date Tylenol 2 tablets every 4 Unknown 325mg Capsules hours as needed for pain Ibuprofen as needed Unknown 200mg Tablets Aspirin 81 Low Dose 1 by mouth every Unknown 81mg day Chewtabs Metoprolol Succinate 1 by mouth twice Unknown ER every day 25mg Tablets ER 24HR Atorvastatin Calcium 1 by mouth every Unknown 80mg day Tablets Nitrostat dissolve 1 tablet Unknown 0.4mg Tablets under the tongue Sub every 5 minutes up to 3 doses as needed replace every 12 months Brilinta 1 tab by mouth Unknown 90mg Tablets twice a day Immunizations Description No Information Available Vital Signs Date Vital Result Comment 06/20/2019 3:38pm Height 65.5 inches 5'5.50" Weight 188.12 lb w/ shoes Heart Rate 60 /min L. radial, regular BP Systolic Sitting 108 mmHg LA, reg cuff BP Diastolic Sitting 78 mmHg LA, reg cuff BP Systolic Standing 102 mmHg LA, reg cuff BP Diastolic Standing 80 mmHg LA, reg cuff BMI (Body Mass Index) 30.8 kg/m2 Ejection Fraction 40-45% 06/11/19 06/06/2017 1:42pm Height 65.5 inches 5'5.50" Weight 177.00 lb without shoes Heart Rate 76 /min BP Systolic Sitting 120 mmHg Lue reg cuff BP Diastolic Sitting 90 mmHg Lue reg cuff BP Systolic Standing 120 mmHg Lue reg cuff BP Diastolic Standing 92 mmHg Lue reg cuff Respiratory Rate 17 /min BMI (Body Mass Index) 29.0 kg/m2 Ejection Fraction 55-60% date 06/02/17 ECHO Results Description No Information Available Procedures Description No Information Available Medical Devices Description No Information Available Encounters Description No Information Available Assessments Description No Information Available Plan of Treatment Future Appointment(s):06/21/2019 2:00 pm - [place] Bender MD at [facility] Internal Medicine - [address] 10:00 am - Addi Cordova DO FACC at [facility] Functional Status Description No Information Available Mental Status Description No Information Available Referrals Description No Information Available
--- OUTSIDE RECORDS SUMMARY | 2019-07-21 09:05 | XMS REPORT | Continuity of Care Document ---
:1985 External Reference #:[id number] Author Name Addi Cordova DO [facility] Address [address] [place] [address] Care Team Providers Name Role Phone Homar Reardon MD - Endocrinology, Care Team Information Hammerer Diabetes & Metabolism Problems Active Problems Provider Date Acute myocardial infarction due to Sha Giordano MD, [facility], Onset: 2019 right coronary artery occlusion FSCAI [...] Brilinta 1 tab by mouth 180tabs Addi Cordova, 90mg Tablets twice a day DO [facility] Jardiance 1/2 by mouth Unknown 25mg Tablets every day Medications Administered in Office Medication SIG Qnty Indications Ordering Provider Date Technetium TC 99M Addi Cordova, DO [facility] 07/04/2019 Tetrofosmin, Per Unit Dose Up To 40 Millicuries Injection Technetium TC 99M Addi SHeath Cordova, DO [facility] 07/04/2019 Tetrofosmin, Per Unit Dose Up To [...] Result H/L Range Note Basic Metabolic 07/11/2019 [facility] Sodium 138 mmol/L Normal 135-145 Panel [address] [place], [place] [id number] [phone] Potassium 4.0 mmol/L Normal 3.5-5.0 Chloride 105 mmol/L Normal 101-111 Co2 Carbon Dioxide 26 mmol/L Normal 22-32 Anion Gap 7 mmol/L Normal 2-11 Glucose 86 mg/dL Normal 70-100 Blood Urea Nitrogen 17 mg/dL Normal 6-24 Creatinine 1.09 mg/dL Normal 0.67-1.17 BUN/Creatinine Ratio 15.6 Normal 8-20 Calcium 9.5 mg/dL Normal 8.6-10.3 Egfr Non- 76.5 >60 Egfr 92.6 >60 1 Laboratory test 07/11/2019 [facility] Ast (Sgot) 28 U/L Normal 13-[address] [place] [address] [phone] Alt (SGPT) 55 U/L High 7-52 Creatine Kinase(CK) 125 U/L Normal 10-223 Lipid Profile 07/11/2019 [facility] Triglycerides 134 mg/dL 2 (Trig/Chol/HDL) [address] [place] [address] [phone] Cholesterol 126 mg/dL 3 HDL Cholesterol 30.5 [...] >189 Procedures Date Code Description Status 07/04/2019 48224 Stress Test Completed 07/04/2019 33951 Myocardial Perfusion Imaging Tomographic (Spect) Multiple Completed Studies 06/11/2019 71730 ECHO Transthorasic Realtime 2D W Doppler & Color Flow Hosp Completed 06/10/2019 02114 Left Heart Cath. Incl S/I Coronaries, Angio S/I V Gram If Completed Done 06/10/2019 53335 Revascularization Acute Total/Subtotal Occlusion Completed Medical Devices Description No Information Available Encounters Type Date Location Provider Dx Diagnosis Office Visit 07/03/2019 [facility] Addi Cordova, R07.9 Chest pain, 10:00a Of Intake Worker DO FACC unspecified I25.2 Old myocardial infarction E78.5 Hyperlipidemia, unspecified I10 Essential (primary) hypertension I25.5 Ischemic cardiomyopathy R73.01 Impaired fasting glucose Office Visit 06/20/2019 3:40p [facility] Sha Alcala I21.11 Stemi involving Of Intake Worker AT [facility] MD Pasquale, right coronary FACC, FSCAI artery Office Visit 06/14/2019 4:11p [facility] Ewelina Parra, I21.11 Stemi involving Of Intake Worker AT [facility] [employer]ILDLIFE CONSERVATION OFFICER right coronary artery I25.10 Athscl heart disease of [place] coronary artery w/o ang pctrs I25.5 Ischemic cardiomyopathy E78.5 Hyperlipidemia, unspecified Office Visit 06/13/2019 11:45a [facility] Matt Bonds, I21.11 Stemi involving Of Intake Worker AT [facility] M.D., FACC, right coronary FSCAI artery I25.10 Athscl heart disease of [place] coronary artery w/o ang pctrs Office Visit 06/12/2019 11:47a [facility] Matt Bonds, I21.11 Stemi involving Of Intake Worker AT [facility] [place] M.D., FACC, right coronary FSCAI artery I25.10 Athscl heart disease of [place] coronary artery w/o ang pctrs Office Visit 06/11/2019 11:40a [facility] Matt Bonds, I21.11 Stemi involving Of Intake Worker AT [facility] M.D., FACC, right coronary FSCAI artery I25.10 Athscl heart disease of [place] coronary artery w/o ang pctrs Office Visit 06/10/2019 4:13p [facility] Sha Alcala I21.11 Stemi involving Of Intake Worker AT [facility] [place] Pasquale, right coronary FACC, FSCAI artery I10 Essential (primary) hypertension E78.5 Hyperlipidemia, unspecified I25.10 Athscl heart disease of [place] coronary artery w/o ang pctrs Assessments Date Code Description Provider 07/12/2019 I25.2 Old myocardial infarction Addi Cordova, DO FACC 07/12/2019 I25.5 Ischemic cardiomyopathy Addi Cordova, DO FACC 07/04/2019 R07.9 Chest pain, unspecified Addi Cordova, DO FACC 07/03/2019 R07.9 Chest pain, unspecified Addi Cordova, DO FACC 07/03/2019 I25.2 Old myocardial infarction Addi Cordova, DO FACC 07/03/2019 E78.5 Hyperlipidemia, unspecified Addi Cordova, DO FACC 07/03/2019 I10 Essential (primary) hypertension Addi Cordova, DO FACC 07/03/2019 I25.5 Ischemic cardiomyopathy Addi Cordova, DO FAC 07/03/2019 R73.01 Impaired fasting glucose Addi Cordova, DO FACC 06/20/[address] elevation (Stemi) myocardial Sha Giordano MD, [facility] , infarction involving right coronary FSCAI artery 06/14/[address] elevation (Stemi) myocardial Ewelina Parra, [employer]ATION OFFICER infarction involving right coronary artery 06/14/2019 I25.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 Ewelina Parra, [employer]IL[employer]SERVATION OFFICER [place] coronary artery without angina pectoris 06/14/2019 I25.5 Ischemic cardiomyopathy Ewelina Thuman, [employer]IL[employer]SERVATION OFFICER 06/14/2019 E78.5 Hyperlipidemia, unspecified Ewelina Thuman, [employer]IL[employer]SERVATION OFFICER 06/13/[address] elevation (Stemi) myocardial Matt Bonds M.D., [facility], FSCAI infarction involving right coronary artery 06/13/2019 I25.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 Matt Bonds M.D., [facility], FSCAI [place] coronary artery without angina pectoris 06/12/[address] elevation (Stemi) myocardial Matt Bonds M.D., [facility], FSCAI infarction involving right coronary artery 06/12/2019 I25.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 Matt Bonds M.D., [facility], FSCAI [place] coronary artery without angina pectoris 06/11/[address] elevation (Stemi) myocardial Otis Wayne M.D. infarction involving right coronary artery 06/11/[address] elevation (Stemi) myocardial Matt Bonds M.D., [facility], FSCAI infarction involving right coronary artery 06/11/2019 I25.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 Matt Bonds M.D., [facility], FSCAI [place] coronary artery without angina pectoris 06/10/[address] elevation (Stemi) myocardial Sha Girodano MD, FAC , infarction involving right coronary FSCAI artery 06/10/2019 I10 Essential (primary) hypertension Sha Giordano MD, FAC, [facility] 06/10/2019 E78.5 Hyperlipidemia, unspecified Sha Giordano MD, FAC, [facility] 06/10/2019 I25.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 Sha Giordano MD, FAC, [place] coronary artery without angina FSCAI pectoris Plan of Treatment 07/12/2019 - Addi Cordova, DO FACCI25.2 Old myocardial infarctionFollow up: Schedule cardiac MRI at [facility] (not [facility]) Please give patient number for cardiac rehab Follow up after MRII25.5 Ischemic cardiomyopathyNew Xrays:MRI Cardiac W/ & W/O Contrast, Ordered: 07/12/19 Functional Status Description No Information Available Mental Status Description No Information Available Referrals Refer to Reason for Referral Status Appt Date Created
--- OUTSIDE RECORDS SUMMARY | 2019-07-21 09:05 | XMS REPORT | Continuity of Care Document ---
:1985 External Reference #:[id number] Author Name Addi Cordova DO FACC (transmitted by agent of provider Nehal Lion) Address [address] [place] [address] Care Team Providers Name Role Phone Homar Reardon MD - Endocrinology, Care Team Information Roll Clamp Operator [phone] Diabetes & Metabolism Problems Active Problems Provider Date Acute myocardial infarction due to Sha Giordano MD, FACC, Onset: 2019 right coronary artery occlusion FSCAI Social History Type Date Description Comments Sex Unknown ETOH Use Occasionally consumes alcohol Socially Tobacco Use Start: Unknown Social smoker 1-2 a year Recreational Drug Use Denies Drug Use Smoking Status Reviewed: 07/03/19 Social smoker 1-2 a year Exercise Type/Frequency [...] Cordova, 90mg Tablets twice a day DO [facility] Jardiance 1/2 by mouth Unknown 25mg Tablets every day Medications Administered in Office Medication SIG Qnty Indications Ordering Provider Date Technetium TC 99M Addi SHeath Cordova, DO [facility] 07/04/2019 Tetrofosmin, Per Unit Dose Up To 40 Millicuries Injection Technetium TC 99M Addi SHeath Cordova, DO [facility] 07/04/2019 Tetrofosmin, Per Unit Dose Up To 40 Millicuries Injection Immunizations Description No Information Available Vital Signs Date Vital Result Comment 07/03/2019 9:50am Height 65.5 inches 5'5.50" Weight 183.00 lb No Shoes BP Systolic Sitting 102 mmHg Lue Reg Cuff BP Diastolic Sitting 64 mmHg Lue Reg Cuff BP Systolic Standing 112 mmHg Lue Reg Cuff BP Diastolic Standing 64 mmHg Lue Reg Cuff Respiratory Rate 14 /min BMI (Body Mass Index) 30.0 kg/m2 Ejection Fraction 40-45% 06/11/2019 06/20/2019 3:38pm Height 65.5 inches 5'5.50" Weight 188.12 lb w/ shoes Heart Rate 60 /min L. radial, regular BP Systolic Sitting 108 mmHg LA, reg cuff BP Diastolic Sitting 78 mmHg LA, reg cuff BP Systolic Standing 102 mmHg LA, reg cuff BP Diastolic Standing 80 mmHg LA, reg cuff BMI (Body Mass Index) 30.8 kg/m2 Ejection Fraction 40-45% 06/11/19 Results Test Acquired Date Facility Test Result H/L Range Note Basic Metabolic 07/11/2019 [facility] Sodium 138 mmol/L Normal 135-145 Panel [address] [place] [address] [phone] Potassium 4.0 mmol/L Normal 3.5-5.0 Chloride 105 mmol/L Normal 101-111 Co2 Carbon Dioxide 26 mmol/L Normal 22-32 Anion Gap 7 mmol/L Normal 2-11 Glucose 86 mg/dL Normal 70-100 Blood Urea Nitrogen 17 mg/dL Normal 6-24 Creatinine 1.09 mg/dL Normal 0.67-1.17 BUN/Creatinine Ratio 15.6 Normal 8-20 Calcium 9.5 mg/dL Normal 8.6-10.3 Egfr Non- 76.5 >60 Egfr 92.6 >60 1 Laboratory test 07/11/2019 [facility] Ast (Sgot) 28 U/L Normal 13-[address] [place] [address] [phone] Alt (SGPT) 55 U/L High 7-52 Creatine Kinase(CK) 125 U/L Normal 10-223 Lipid Profile 07/11/2019 [facility] Triglycerides 134 mg/dL 2 (Trig/Chol/HDL) [address] [place] [address] [phone] Cholesterol 126 mg/dL 3 HDL Cholesterol 30.5 [...] >189 Procedures Date Code Description Status 07/04/2019 37096 Stress Test Completed 07/04/2019 17588 Myocardial Perfusion Imaging Tomographic (Spect) Multiple Completed Studies 06/11/2019 77082 ECHO Transthorasic Realtime 2D W Doppler & Color Flow Hosp Completed 06/10/2019 34935 Left Heart Cath. Incl S/I Coronaries, Angio S/I V Gram If Completed Done 06/10/2019 94940 Revascularization Acute Total/Subtotal Occlusion Completed Medical Devices Description No Information Available Encounters Type Date Location Provider Dx Diagnosis Office Visit 07/03/2019 [facility] Addi Cordova, R07.9 Chest pain, 10:00a Of Mat Worker DO FACC unspecified I25.2 Old myocardial infarction E78.5 Hyperlipidemia, unspecified I10 Essential (primary) hypertension I25.5 Ischemic cardiomyopathy R73.01 Impaired fasting glucose Office Visit 06/20/2019 3:40p [facility] Sha Alcala I21.11 Stemi involving Of Mat Worker [place] [facility] [place]qu[place], right coronary FACC, FSCAI artery Office Visit 06/14/2019 4:11p [facility] Ewelina Parra, I21.11 Stemi involving Of Mat Worker AT [facility] [employer] right coronary artery I25.10 Athscl heart disease of [place] coronary artery w/o ang pctrs I25.5 Ischemic cardiomyopathy E78.5 Hyperlipidemia, unspecified Office Visit 06/13/2019 11:45a [facility] Matt Bonds, I21.11 Stemi involving Of Mat Worker [facility] M.[place]., FACC, right coronary FSCAI artery I25.10 Athscl heart disease of [place] coronary artery w/o ang pctrs Office Visit 06/12/2019 11:47a [facility] Matt Bonds, I21.11 Stemi involving Of Mat Worker AT [facility] [place]., FACC, right coronary FSCAI artery I25.10 Athscl heart disease of [place] coronary artery w/o ang pctrs Office Visit 06/11/2019 11:40a [facility] Matt Bonds, I21.11 Stemi involving Of Mat Worker AT [facility] M.D., FACC, right coronary FSCAI artery I25.10 Athscl heart disease of [place] coronary artery w/o ang pctrs Office Visit 06/10/2019 4:13p [facility] Sha Alcala I21.11 Stemi involving Of Mat Worker AT [facility] [place] Pasquale, right coronary FACC, FSCAI artery I10 Essential (primary) hypertension E78.5 Hyperlipidemia, unspecified I25.10 Athscl heart disease of [place] coronary artery w/o ang pctrs Assessments Date Code Description Provider 07/04/2019 R07.9 Chest pain, unspecified Addi Cordova, [...] St elevation (Stemi) myocardial Sha Giordano MD, [facility] , infarction involving right coronary FSCAI artery 06/14/[address] elevation (Stemi) myocardial Ewelina Parra, [employer] infarction involving right coronary artery 06/14/2019 I25.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 Ewelina Parra, [employer] [place] coronary artery without angina pectoris 06/14/2019 I25.5 Ischemic cardiomyopathy Ewelina Parra, [employer] 06/14/2019 E78.5 Hyperlipidemia, unspecified Ewelina Thuman, [employer] 06/13/[address] elevation (Stemi) myocardial Matt Bonds M.D., [facility], FSCAI infarction involving right coronary artery 06/13/2019 I25.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 Matt Bonds M.D., [facility], FSCAI [place] coronary artery without angina pectoris 06/12/[address] elevation (Stemi) myocardial Matt Bonds M.D., [facility], FSCAI infarction involving right coronary artery 06/12/2019 I25.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 Matt Bonds M.D., [facility], FSCAI [place] coronary artery without angina pectoris 06/11/[address] elevation (Stemi) myocardial Otis Wayne M.D. infarction involving right coronary artery 06/11/[address] elevation (Stemi) myocardial Matt Bonds M.D., [facility], FSCAI infarction involving right coronary artery 06/11/2019 I25.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 Matt Bonds M.D., [facility], FSCAI [place] coronary artery without angina pectoris 06/10/[address] elevation (Stemi) myocardial Sha Giordano MD, [facility] , infarction involving right coronary FSCAI artery 06/10/2019 I10 Essential (primary) hypertension Sha Giordano MD, [facility], [facility] 06/10/2019 E78.5 Hyperlipidemia, unspecified Sha Giordano MD, [facility], [facility] 06/10/2019 I25.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 Sha Giordano MD, [facility], [place] coronary artery without angina FSCAI pectoris Plan of Treatment 07/03/2019 - Addi Cordova, DO FACCR07.9 Chest pain, unspecifiedNew Therapy: Cardiac RehabComments:Start taking low dose losartan 25 mg once a day.Have non- fasting blood work in 1 week after startingFollow up:Please contact cardiac rehab and have patient be scheduled f/u after stress testI25.2 Old myocardial szwqqbgvfgX37.5 Hyperlipidemia, [id number] Essential (primary) hypertensionNew Medication:Losartan Potassium 25 mg - 1 by mouth every dayI25.5 Ischemic aofubvenybkfooY87.01 Impaired fasting glucose Functional Status Description No Information Available Mental Status Description No Information Available Referrals Refer to Reason for Referral Status Appt Date Created
--- OUTSIDE RECORDS SUMMARY | 2019-07-21 09:05 | XMS REPORT | Continuity of Care Document ---
:1985 External Reference #:[id number] Author Name Addi Cordova DO FACC (transmitted by agent of provider Nehal Lion) Address [address] [place] [address] Care Team Providers Name Role Phone Homar Reardon MD - Endocrinology, Care Team Information Site Acquisition Manager Diabetes & Metabolism Problems Active Problems Provider [...] Brilinta 1 tab by mouth 180tabs Addi Wong Cordova, 90mg Tablets twice a day DO FACC Jardiance 1/2 by mouth Unknown 25mg Tablets every day Medications Administered in Office Medication SIG Qnty Indications Ordering Provider Date Technetium TC 99M Addi Cordova, DO FACC 07/04/2019 Tetrofosmin, Per Unit Dose Up To 40 Millicuries Injection Technetium TC 99M Addi Cordova, DO FACC 07/04/2019 Tetrofosmin, Per Unit Dose Up To [...] 30.8 kg/m2 Ejection Fraction 40-45% 06/11/19 Results Description No Information Available Procedures Date Code Description Status 06/11/2019 69630 ECHO Transthorasic Realtime 2D W Doppler & Color Flow Hosp Completed 06/10/2019 38756 Left Heart Cath. Incl S/I Coronaries, Angio S/I V Gram If Completed Done 06/10/2019 98585 Revascularization Acute Total/Subtotal Occlusion Completed Medical Devices Description No Information Available Encounters Type Date Location Provider Dx Diagnosis Office Visit 07/03/2019 [facility] Addi Cordova, R07.9 Chest pain, 10:00a Of Web Retailer DO FACC unspecified I25.2 Old myocardial infarction E78.5 Hyperlipidemia, unspecified I10 Essential (primary) hypertension I25.5 Ischemic cardiomyopathy R73.01 Impaired fasting glucose Office Visit 06/20/2019 3:40p [facility] Sha Alcala I21.11 Stemi involving Of Web Retailer AT [facility] MD Pasquale, right coronary FACC, FSCAI artery Office Visit 06/14/2019 4:11p [facility] Ewelina Parra, I21.11 Stemi involving Of Web Retailer AT [facility] [employer] right coronary artery I25.10 Athscl heart disease of [place] coronary artery w/o ang pctrs I25.5 Ischemic cardiomyopathy E78.5 Hyperlipidemia, unspecified Office Visit 06/13/2019 11:45a [facility] Matt Bonds, I21.11 Stemi involving Of Web Retailer AT [facility] M.D., FACC, right coronary FSCAI artery I25.10 Athscl heart disease of [place] coronary artery w/o ang pctrs Office Visit 06/12/2019 11:47a [facility] Matt Bonds, I21.11 Stemi involving Of Web Retailer AT [facility] M.D., FACC, right coronary FSCAI artery I25.10 Athscl heart disease of [place] coronary artery w/o ang pctrs Office Visit 06/11/2019 11:40a [facility] Matt Bonds, I21.11 Stemi involving Of Web Retailer AT [facility] M.D., FACC, right coronary FSCAI artery I25.10 Athscl heart disease of [place] coronary artery w/o ang pctrs Office Visit 06/10/2019 4:13p [facility] Sah Alcala I21.11 Stemi involving Of Web Retailer AT [facility] MD Pasquale, right coronary FACC, FSCAI artery I10 Essential (primary) hypertension E78.5 Hyperlipidemia, unspecified I25.10 Athscl heart disease of [place] coronary artery w/o ang pctrs Assessments Date Code Description Provider 07/03/2019 R07.9 Chest pain, unspecified Addi Cordova, DO FACC 07/03/2019 I25.2 Old myocardial infarction Addi Cordova, DO FACC 07/03/2019 E78.5 Hyperlipidemia, unspecified Addi Cordova, DO FACC 07/03/2019 I10 Essential (primary) hypertension Addi Cordova, DO FACC 07/03/2019 I25.5 Ischemic cardiomyopathy Addi Cordova, DO FACC 07/03/2019 R73.01 Impaired fasting glucose Addi Cordova, DO FACC 06/20/[address] elevation (Stemi) myocardial Sha Giordano MD, [facility] , infarction involving right coronary FSCAI artery 06/14/[address] elevation (Stemi) myocardial Ewelina Parra, [facility] infarction involving right coronary artery 06/14/2019 I25.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 Ewelina Parra [employer] [place] coronary artery without angina pectoris 06/14/2019 I25.5 Ischemic cardiomyopathy Ewelina Parra, [employer] 06/14/2019 E78.5 Hyperlipidemia, unspecified Ewelina Parra, [employer] 06/13/[address] elevation (Stemi) myocardial Matt Bonds M.D., FACC, FSCAI infarction involving right coronary artery 06/13/2019 I25.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 FSCAI [place] coronary artery without angina pectoris 06/12/[address] elevation (Stemi) myocardial Matt Bonds M.D., [facility], FSCAI infarction involving right coronary artery 06/12/2019 I25.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 Matt Bonds M.D., [facility], FSCAI [place] coronary artery without angina pectoris 06/11/[address] elevation (Stemi) myocardial Otis Wayne M.D. infarction involving right coronary artery 06/11/[address] elevation (Stemi) myocardial Matt Bonds M.D., [facility], FSCAI infarction involving right coronary artery 06/11/2019 I25.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 Matt Bonds M.D., [facility], FSCAI [place] coronary artery without angina pectoris 06/10/[address] elevation (Stemi) myocardial Sha Giordano MD, [facility] , infarction involving right coronary FSCAI artery 06/10/2019 I10 Essential (primary) hypertension [facility], [facility], FSCAI 06/10/2019 E78.5 Hyperlipidemia, unspecified Sha Giordano MD, [facility], FSCAI 06/10/2019 I25.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 Sha Giordano MD, [facility], [place] coronary artery without angina FSCAI pectoris Plan of Treatment Future Appointment(s):07/12/2019 8:00 am - Addi Cordova DO FACC at [facility]07/03/2019 - Addi Cordova, DO FACCR07.9 Chest pain, unspecifiedNew Orders:Stress Test, Exercise Nuclear, Ordered: 07/03/19New Therapy:Cardiac RehabComments:Start taking low dose losartan 25 mg once a day.Have non-fasting blood work in 1 week after startingFollow up:Please contact cardiac rehab and have patient be scheduled f/u after stress testI25.2 Old myocardial ncpcevhkwwE89.5 Hyperlipidemia, unspecifiedNew Labs:Ast (Sgot), Ordered: 07/03/19Alt, Ordered: 07/03/19Creatine Kinase(CK), Ordered: Lipid Profile (Trig/Chol/HDL), Ordered: 07/03/19I10 Essential (primary) hypertensionNew Medication:Losartan Potassium 25 mg - 1 by mouth every dayNew Labs:Basic Metabolic Panel, Ordered: 07/03/19I25.5 Ischemic xdtdcwijjagpwmG85.01 Impaired fasting glucose Functional Status Description No Information Available Mental Status Description No Information Available Referrals Refer to Reason for Referral Status Appt Date Created
--- OUTSIDE RECORDS SUMMARY | 2019-07-21 09:05 | XMS REPORT | Continuity of Care Document ---
:1985 External Reference #:[id number] Author Name Rodrick Pyle M.D. (transmitted by agent of provider Alicia Perez ) Address [address] [facility] [address] [place] [address] Care Team Providers Name Role Phone [facility] Care Team Information Costumed Character Entertainer Problems Description No Information Available Social History Type Date Description Comments Sex Unknown ETOH Use Occasionally consumes alcohol Socially Tobacco Use Start: Unknown Social smoker 1-2 a year Recreational Drug Use Denies Drug Use Exercise Type/Frequency Exercises regularly 45 mins a day Allergies, Adverse Reactions, Alerts Description No Known Drug Allergies Medications Active Medications SIG Qnty Indications Ordering Provider Date Tylenol 2 tablets every 4 Unknown 325mg Capsules hours as needed for pain Ibuprofen as needed Unknown 200mg Tablets Fluticasone Propionate 2 sprays each Unknown nostril daily as 50mcg/Act Suspension needed Aspirin 81 Low Dose 1 by mouth every Unknown 81mg day Chewtabs Immunizations Description No Information Available Vital Signs Date Vital Result Comment 06/06/2017 1:42pm Height 65.5 inches 5'5.50" Weight 177.00 lb without shoes Heart Rate 76 /min BP Systolic Sitting 120 mmHg Lue reg cuff BP Diastolic Sitting 90 mmHg Lue reg cuff BP Systolic Standing 120 mmHg Lue reg cuff BP Diastolic Standing 92 mmHg Lue reg cuff Respiratory Rate 17 /min BMI (Body Mass Index) 29.0 kg/m2 Ejection Fraction 55-60% date 06/02/17 ECHO 04/27/2017 9:02am Height 65.5 inches 5'5.50" Weight 179.00 lb No shoes Heart Rate 62 /min BP Systolic 126 mmHg Rue lrg cuff BP Diastolic 88 mmHg Rue lrg cuff BP Systolic Sitting 128 mmHg Lue lrg cuff BP Diastolic Sitting 84 mmHg Lue lrg cuff BP Systolic Standing 118 mmHg Lue lrg cuff BP Diastolic Standing 76 mmHg Lue lrg cuff Respiratory Rate 15 /min BMI (Body Mass Index) 29.3 kg/m2 Results Description No Information Available Procedures Description No Information Available Medical Devices Description No Information Available Encounters Description No Information Available Assessments Description No Information Available Plan of Treatment 06/06/2017 - Addi Cordova, FACCQ23.1 Congenital insufficiency of aortic valveComments:- You can stop taking aspirin- 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 There is no significant stenosis (narrowing) or regurgitation (leakiness). There is a very mild dilation of the aorta at 3.6 cm. You should have another echocardiogram in about 3 years to re-evaluate this. You resting blood pressure is normal but with exercise goes too high. Depending on the results of the nextechocardiogram, you may need to start medication for this.- Continue with exercise and keep the dietitian appointment. You will need repeat lipid panel checked at some point. I am hoping you can improve with lifestyle changes.Follow up:Please give patient a copy of his echocardiogram report f/u 3 aezqjQ00.5 Hyperlipidemia, unspecified Functional Status Description No Information Available Mental Status Description No Information Available Referrals Description No Information Available
--- OUTSIDE RECORDS SUMMARY | 2019-07-21 09:05 | XMS REPORT | Continuity of Care Document ---
:1985 External Reference #:[id number] Author Name Landon Berman M.D., [facility], [facility] (transmitted by agent of provider Shanel Echeverria) Address [address] [place] [address] Care Team Providers Name Role Phone Homar Reardon MD - Endocrinology, Care Team Information Armor Reconnaissance Specialist [phone] Diabetes & Metabolism Problems Active Problems Provider Date Acute myocardial infarction due to Sha Giordano MD, [facility], Onset: 2019 right coronary artery occlusion FSCAI [...] months Brilinta 1 tab by mouth 180tabs Addimayra Cordova, 90mg Tablets twice a day DO [facility] Jardiance 1/2 by mouth Unknown 25mg Tablets every day Medications Administered in Office Medication SIG Qnty Indications Ordering Provider Date Technetium TC 99M Addi DestineeHeath Cordova, DO [facility] 07/04/2019 Tetrofosmin, Per Unit Dose Up To 40 Millicuries Injection Technetium TC 99M Addi SHeath Cordova, DO [facility] 07/04/2019 Tetrofosmin, Per Unit Dose Up To [...] Result H/L Range Note Basic Metabolic 07/11/2019 [facility] Sodium 138 mmol/L Normal 135-145 Panel [address] [place] [address] [phone] Potassium 4.0 mmol/L Normal 3.5-5.0 Chloride 105 mmol/L Normal 101-111 Co2 Carbon Dioxide 26 mmol/L Normal 22-32 Anion Gap 7 mmol/L Normal 2-11 Glucose 86 mg/dL Normal 70-100 Blood Urea Nitrogen 17 mg/dL Normal 6-24 Creatinine 1.09 mg/dL Normal 0.67-1.17 BUN/Creatinine Ratio 15.6 Normal 8-20 Calcium 9.5 mg/dL Normal 8.6-10.3 Egfr Non- 76.5 >60 Egfr 92.6 >60 1 Laboratory test 07/11/2019 [facility] Ast (Sgot) 28 U/L Normal 13-[address] [place] [address] [phone] Alt (SGPT) 55 U/L High 7-52 Creatine Kinase(CK) 125 U/L Normal 10-223 Lipid Profile 07/11/2019 [facility] Triglycerides 134 mg/dL 2 (Trig/Chol/HDL) [address] [place] [address] [phone] Cholesterol 126 mg/dL 3 HDL Cholesterol 30.5 [...] >189 Procedures Date Code Description Status 07/04/2019 15182 Stress Test Completed 07/04/2019 85715 Myocardial Perfusion Imaging Tomographic (Spect) Multiple Completed Studies 06/13/2019 05395 EKG, Interpretation Only Completed 06/12/2019 80105 EKG, Interpretation Only Completed 06/11/2019 96359 ECHO Transthorasic Realtime 2D W Doppler & Color Flow Hosp Completed 06/11/2019 27652 EKG, Interpretation Only Completed 06/10/2019 21795 Left Heart Cath. Incl S/I Coronaries, Angio S/I V Gram If Completed Done 06/10/2019 19626 EKG, Interpretation Only Completed 06/10/2019 74693 Revascularization Acute Total/Subtotal Occlusion Completed Medical Devices Description No Information Available Encounters Type Date Location Provider Dx Diagnosis Office Visit 07/03/2019 [facility] Addi Cordova, R07.9 Chest pain, 10:00a Of Cotton Picker Operator DO FACC unspecified I25.2 Old myocardial infarction E78.5 Hyperlipidemia, unspecified I10 Essential (primary) hypertension I25.5 Ischemic cardiomyopathy R73.01 Impaired fasting glucose Office Visit 06/20/2019 3:40p [facility] Sha Alcala I21.11 Stemi involving Of Cotton Picker Operator [place] [facility] [place] Pasquale, right coronary FACC, FSCAI artery Office Visit 06/14/2019 4:11p [facility] Ewelina Parra, I21.11 Stemi involving Of Cotton Picker Operator [place] [facility] INSTRUCTIONAL TECHNOLOGY COORDINATOR right coronary artery I25.10 Athscl heart disease of [place] coronary artery w/o ang pctrs I25.5 Ischemic cardiomyopathy E78.5 Hyperlipidemia, unspecified Office Visit 06/13/2019 11:45a [facility] Matt Bonds, I21.11 Stemi involving Of Cotton Picker Operator [place] [facility] [place] FACC, right coronary FSCAI artery I25.10 Athscl heart disease of [place] coronary artery w/o ang pctrs Office Visit 06/12/2019 11:47a [facility] Matt Bonds, I21.11 Stemi involving Of Cotton Picker Operator [place] [facility] [place] FACC, right coronary FSCAI artery I25.10 Athscl heart disease of [place] coronary artery w/o ang pctrs Office Visit 06/11/2019 11:40a [facility] Matt Bonds, I21.11 Stemi involving Of Cotton Picker Operator [place] [facility] [place] FACC, right coronary FSCAI artery I25.10 Athscl heart disease of [place] coronary artery w/o ang pctrs Office Visit 06/10/2019 4:13p [facility] Sha Alcala I21.11 Stemi involving Of Cotton Picker Operator [place] [facility] [place] Pasquale, right coronary FACC, FSCAI artery I10 Essential (primary) hypertension E78.5 Hyperlipidemia, unspecified I25.10 Athscl heart disease of [place] coronary artery w/o ang pctrs Assessments Date Code Description Provider 07/12/2019 I25.2 Old myocardial infarction Addi Cordova, DO FACC 07/12/2019 I25.5 Ischemic cardiomyopathy Addi Cordova, DO FACC 07/12/2019 E78.5 Hyperlipidemia, unspecified Addi Cordova, DO FACC 07/12/2019 I10 Essential (primary) hypertension Addi Cordova, DO FACC 07/12/2019 R73.01 Impaired fasting glucose Addi Cordova, DO FACC 07/12/2019 Q23.1 Congenital insufficiency of aortic Addi Cordova, DO FACC valve 07/04/2019 R07.9 Chest pain, unspecified Addi Cordova, [...] St elevation (Stemi) myocardial Sha Giordano MD, [facility] , infarction involving right coronary FSCAI artery 06/14/[address] elevation (Stemi) myocardial Ewelina Parra, INSTRUCTIONAL TECHNOLOGY COORDINATOR infarction involving right coronary artery 06/14/2019 I25.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 Ewelina Parra INSTRUCTIONAL TECHNOLOGY COORDINATOR [place] coronary artery without angina pectoris 06/14/2019 I25.5 Ischemic cardiomyopathy Ewelina Parra, INSTRUCTIONAL TECHNOLOGY COORDINATOR 06/14/2019 E78.5 Hyperlipidemia, unspecified Ewelina Hollandsander, INSTRUCTIONAL TECHNOLOGY COORDINATOR 06/13/2019 R94.31 Abnormal electrocardiogram [ECG] [EKG] Landon Berman M.D., [facility], [facility] 06/13/[address] elevation (Stemi) myocardial Matt Bonds M.D., [facility], infarction involving right coronary FSCAI artery 06/13/2019 I25.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 Matt Bonds M.D., [facility], [place] coronary artery without angina FSCAI pectoris 06/12/2019 R94.31 Abnormal electrocardiogram [ECG] [EKG] Landon Berman M.D., [facility], [facility] 06/12/[address] elevation (Stemi) myocardial Matt Bonds M.D., [facility], infarction involving right coronary FSCAI artery 06/12/2019 I25.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 Matt Bonds M.D., [facility], [place] coronary artery without angina FSCAI pectoris 06/11/2019 R94.31 Abnormal electrocardiogram [ECG] [EKG] Rodrick Pyle M.D. 06/11/[address] elevation (Stemi) myocardial Otis Wayne M.D. infarction involving right coronary artery 06/11/[address] elevation (Stemi) myocardial Matt Bonds M.D., [facility], infarction involving right coronary FSCAI artery 06/11/2019 I25.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 Matt Bonds M.D., [facility], [place] coronary artery without angina FSCAI pectoris 06/10/2019 R94.31 Abnormal electrocardiogram [ECG] [EKG] Landon Berman M.D., [facility], [facility] 06/10/[address] elevation (Stemi) myocardial Sha Giordano MD, [facility] , infarction involving right coronary FSCAI artery 06/10/2019 I10 Essential (primary) hypertension Sha Giordano MD, [facility], [facility] 06/10/2019 E78.5 Hyperlipidemia, unspecified Sha Giordano MD, [facility], [facility] 06/10/2019 I25.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 Sha Giordano MD, [facility], [place] coronary artery without angina FSCAI pectoris Plan of Treatment 07/12/2019 - Addi Cordova, FACCI25.2 Old myocardial infarctionFollow up: Schedule cardiac MRI at [facility] (not [facility]) Please give patient number for cardiac rehab Follow up after MRII25.5 Ischemic cardiomyopathyNew Xrays:MRI Cardiac W/ & W/O Contrast, Ordered: 07/12/19E78.5 Hyperlipidemia, [id number] Essential (primary) [id number] Impaired fasting [id number] Congenital insufficiency of aortic valve Functional Status Description No Information Available Mental Status Description No Information Available Referrals Refer to Reason for Referral Status Appt Date Created
--- OUTSIDE RECORDS SUMMARY | 2019-07-21 09:05 | XMS REPORT | Continuity of Care Document ---
:1985 External Reference #:[id number] Author Name Landon Berman M.D., [facility], [facility] (transmitted by agent of provider Nehal Lion) Address [address] [place] [address] Care Team Providers Name Role Phone Homar Reardon MD - Endocrinology, Care Team Information Residential Living Assistant [phone] Diabetes & Metabolism Problems Active Problems Provider Date Acute myocardial infarction due to Sha Giordano MD, [facility], Onset: 2019 right coronary artery [...] Cordova, 90mg Tablets twice a day DO [facility] Jardiance 1/2 by mouth Unknown 25mg Tablets every day Medications Administered in Office Medication SIG Qnty Indications Ordering Provider Date Technetium TC 99M Addi SHeath Cordova, DO [facility] 07/04/2019 Tetrofosmin, Per Unit Dose Up To 40 Millicuries Injection Technetium TC 99M Addi SHeath Cordova, DO [facility] 07/04/2019 Tetrofosmin, Per Unit Dose [...] Result H/L Range Note Basic Metabolic 07/11/2019 [facility] Sodium 138 mmol/L Normal 135-145 Panel [address] [place] [address] [phone] Potassium 4.0 mmol/L Normal 3.5-5.0 Chloride 105 mmol/L Normal 101-111 Co2 Carbon Dioxide 26 mmol/L Normal 22-32 Anion Gap 7 mmol/L Normal 2-11 Glucose 86 mg/dL Normal 70-100 Blood Urea Nitrogen 17 mg/dL Normal 6-24 Creatinine 1.09 mg/dL Normal 0.67-1.17 BUN/Creatinine Ratio 15.6 Normal 8-20 Calcium 9.5 mg/dL Normal 8.6-10.3 Egfr Non- 76.5 >60 Egfr 92.6 >60 1 Laboratory test 07/11/2019 [facility] Ast (Sgot) 28 U/L Normal 13-[address] [place] [address] [phone] Alt (SGPT) 55 U/L High 7-52 Creatine Kinase(CK) 125 U/L Normal 10-223 Lipid Profile 07/11/2019 [facility] Triglycerides 134 mg/dL 2 (Trig/Chol/HDL) [address] [place] [address] [phone] Cholesterol 126 mg/dL 3 HDL Cholesterol 30.5 [...] >189 Procedures Date Code Description Status 07/04/2019 83410 Stress Test Completed 07/04/2019 25742 Myocardial Perfusion Imaging Tomographic (Spect) Multiple Completed Studies 06/13/2019 02644 EKG, Interpretation Only Completed 06/12/2019 67390 EKG, Interpretation Only Completed 06/11/2019 95483 ECHO Transthorasic Realtime 2D W Doppler & Color Flow Hosp Completed 06/11/2019 02015 EKG, Interpretation Only Completed 06/10/2019 51997 Left Heart Cath. Incl S/I Coronaries, Angio S/I V Gram If Completed Done 06/10/2019 72121 EKG, Interpretation Only Completed 06/10/2019 21808 Revascularization Acute Total/Subtotal Occlusion Completed Medical Devices Description No Information Available Encounters Type Date Location Provider Dx Diagnosis Office Visit 07/03/2019 [facility] Addi Cordova, R07.9 Chest pain, 10:00a Of Ad Operations Associate DO FACC unspecified I25.2 Old myocardial infarction E78.5 Hyperlipidemia, unspecified I10 Essential (primary) hypertension I25.5 Ischemic cardiomyopathy R73.01 Impaired fasting glucose Office Visit 06/20/2019 3:40p [facility] Sha Alcala I21.11 Stemi involving Of Ad Operations Associate AT [facility] MD Pasquale, right coronary FACC, FSCAI artery Office Visit 06/14/2019 4:11p [facility] Ewelina Parra I21.11 Stemi involving Of Ad Operations Associate AT [facility] CHILD ADVOCATE right coronary artery I25.10 Athscl heart disease of [place] coronary artery w/o ang pctrs I25.5 Ischemic cardiomyopathy E78.5 Hyperlipidemia, unspecified Office Visit 06/13/2019 11:45a [facility] Matt Bonds, I21.11 Stemi involving Of Ad Operations Associate AT [facility] M.D., FACC, right coronary FSCAI artery I25.10 Athscl heart disease of [place] coronary artery w/o ang pctrs Office Visit 06/12/2019 11:47a [facility] Matt Bonds, I21.11 Stemi involving Of Ad Operations Associate AT [facility] M.D., FACC, right coronary FSCAI artery I25.10 Athscl heart disease of [place] coronary artery w/o ang pctrs Office Visit 06/11/2019 11:40a [facility] Matt Bonds, I21.11 Stemi involving Of Ad Operations Associate AT [facility] M.D., FACC, right coronary FSCAI artery I25.10 Athscl heart disease of [place] coronary artery w/o ang pctrs Office Visit 06/10/2019 4:13p [facility] Sha Alcala I21.11 Stemi involving Of Ad Operations Associate AT [facility] MD Pasquale, right coronary FACC, FSCAI artery I10 Essential (primary) hypertension E78.5 Hyperlipidemia, unspecified I25.10 Athscl heart disease of [place] coronary artery w/o ang pctrs Assessments Date [...] St elevation (Stemi) myocardial Sha Giordano MD, [facility] , infarction involving right coronary FSCAI artery 06/14/[address] elevation (Stemi) myocardial Ewelina Parra CHILD ADVOCATE infarction involving right coronary artery 06/14/2019 I25.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 Ewelina Parra CHILD ADVOCATE [place] coronary artery without angina pectoris 06/14/2019 I25.5 Ischemic cardiomyopathy Ewelina Hollandsander, CHILD ADVOCATE 06/14/2019 E78.5 Hyperlipidemia, unspecified Ewelina Parra, CHILD ADVOCATE 06/13/2019 R94.31 Abnormal electrocardiogram [ECG] [EKG] Landon Berman M.D., [facility], [facility] 06/13/[address] elevation (Stemi) myocardial Matt Bonds M.D., [facility], infarction involving right coronary FSCAI artery 06/13/2019 I25.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 Matt Bonds M.D., [facility], [place] coronary artery without angina FSCAI pectoris 06/12/2019 R94.31 Abnormal electrocardiogram [ECG] [EKG] Landon Berman M.D., [facility], [facility] 06/12/[address] elevation (Stemi) myocardial Matt Bonds M.D., [facility], infarction involving right coronary FSCAI artery 06/12/2019 I25.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 Matt Bonds M.D., [facility], [place] coronary artery without angina FSCAI pectoris 06/11/2019 R94.31 Abnormal electrocardiogram [ECG] [EKG] Rodrick Pyle M.D. 06/11/[address] elevation (Stemi) myocardial Otis Wayne M.D. infarction involving right coronary artery 06/11/[address] elevation (Stemi) myocardial Matt Bonds M.D., [facility], infarction involving right coronary FSCAI artery 06/11/2019 I25.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 Matt Bonds M.D., [facility], [place] coronary artery without angina FSCAI pectoris 06/10/2019 R94.31 Abnormal electrocardiogram [ECG] [EKG] Landon Berman M.D., [facility], [facility] 06/10/[address] elevation (Stemi) myocardial Sha Giordano MD, [facility] , infarction involving right coronary FSCAI artery 06/10/2019 I10 Essential (primary) hypertension Sha Giordano MD, [facility], [facility] 06/10/2019 E78.5 Hyperlipidemia, unspecified Sha Giordano MD, [facility], [facility] 06/10/2019 I25.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 Sha Giordano MD, [facility], [place] coronary artery without angina FSCAI pectoris Plan of Treatment 07/12/2019 - Addi Cordova DO FACCI25.2 Old myocardial infarctionFollow up: Schedule cardiac MRI at [facility] (not [facility]) Please give patient number for cardiac rehab Follow up after MRII25.5 Ischemic cardiomyopathyNew Xrays:MRI Cardiac W/ & W/O Contrast, Ordered: 07/12/19E78.5 Hyperlipidemia, [id number] Essential (primary) [id number] Impaired fasting pzosfwmG83.1 Congenital insufficiency of aortic valve Functional Status Description No Information Available Mental Status Description No Information Available Referrals Refer to Reason for Referral Status Appt Date Created
--- OUTSIDE RECORDS SUMMARY | 2019-07-21 09:05 | XMS REPORT | Continuity of Care Document ---
:1985 External Reference #:[id number] Author Name Landon Berman M.D., [facility], [facility] (transmitted by agent of provider Nehal Lion) Address [address] [place] [address] Care Team Providers Name Role Phone Homar Reardon MD - Endocrinology, Care Team Information Information Services Manager Diabetes & Metabolism Problems Active Problems Provider Date Acute myocardial infarction due to Sha Giordano MD, [facility], Onset: 2019 right coronary artery occlusion [...] Cordova, 90mg Tablets twice a day DO [facility] Jardiance 1/2 by mouth Unknown 25mg Tablets every day Medications Administered in Office Medication SIG Qnty Indications Ordering Provider Date Technetium TC 99M Addi SHeath Cordova, DO [facility] 07/04/2019 Tetrofosmin, Per Unit Dose Up To 40 Millicuries Injection Technetium TC 99M Addi SHeath Cordova, DO [facility] 07/04/2019 Tetrofosmin, Per Unit Dose Up [...] Result H/L Range Note Basic Metabolic 07/11/2019 [facility] Sodium 138 mmol/L Normal 135-145 [address] [place] [address] [phone] Potassium 4.0 mmol/L Normal 3.5-5.0 Chloride 105 mmol/L Normal 101-111 Co2 Carbon Dioxide 26 mmol/L Normal 22-32 Anion Gap 7 mmol/L Normal 2-11 Glucose 86 mg/dL Normal 70-100 Blood Urea Nitrogen 17 mg/dL Normal 6-24 Creatinine 1.09 mg/dL Normal 0.67-1.17 BUN/Creatinine Ratio 15.6 Normal 8-20 Calcium 9.5 mg/dL Normal 8.6-10.3 Egfr Non- 76.5 >60 Egfr 92.6 >60 1 Laboratory test 07/11/2019 [facility] Ast (Sgot) 28 U/L Normal 13-[address] [place] [address] [phone] Alt (SGPT) 55 U/L High 7-52 Creatine Kinase(CK) 125 U/L Normal 10-223 Lipid Profile 07/11/2019 [facility] Triglycerides 134 mg/dL 2 (Trig/Chol/HDL) [address] [place] [address] [phone] Cholesterol 126 mg/dL 3 HDL Cholesterol 30.5 [...] >189 Procedures Date Code Description Status 07/04/2019 43244 Stress Test Completed 07/04/2019 59457 Myocardial Perfusion Imaging Tomographic (Spect) Multiple Completed Studies 06/13/2019 83829 EKG, Interpretation Only Completed 06/12/2019 80932 EKG, Interpretation Only Completed 06/11/2019 56969 ECHO Transthorasic Realtime 2D W Doppler & Color Flow Hosp Completed 06/11/2019 89682 EKG, Interpretation Only Completed 06/10/2019 46896 Left Heart Cath. Incl S/I Coronaries, Angio S/I V Gram If Completed Done 06/10/2019 91203 EKG, Interpretation Only Completed 06/10/2019 51137 Revascularization Acute Total/Subtotal Occlusion Completed Medical Devices Description No Information Available Encounters Type Date Location Provider Dx Diagnosis Office Visit 07/03/2019 [facility] Addi Cordova, R07.9 Chest pain, 10:00a Of [employer] DO FACC unspecified I25.2 Old myocardial infarction E78.5 Hyperlipidemia, unspecified I10 Essential (primary) hypertension I25.5 Ischemic cardiomyopathy R73.01 Impaired fasting glucose Office Visit 06/20/2019 3:40p [facility] Sha Alcala I21.11 Stemi involving Of [employer] AT [place] MD Pasquale, right coronary FACC, FSCAI artery Office Visit 06/14/2019 4:11p [facility] Ewelina Parra I21.11 Stemi involving Of [employer] AT [place] ESTABLISHMENT GUIDE right coronary artery I25.10 Athscl heart disease of [place] coronary artery w/o ang pctrs I25.5 Ischemic cardiomyopathy E78.5 Hyperlipidemia, unspecified Office Visit 06/13/2019 11:45a [facility] Matt Bonds, I21.11 Stemi involving Of [employer] [facility] [place] M.D., FACC, right coronary FSCAI artery I25.10 Athscl heart disease of [place] coronary artery w/o ang pctrs Office Visit 06/12/2019 11:47a [facility] Matt Bonds, I21.11 Stemi involving Of [employer] AT [place] M.D., FACC, right coronary FSCAI artery I25.10 Athscl heart disease of [place] coronary artery w/o ang pctrs Office Visit 06/11/2019 11:40a [facility] Matt Bonds, I21.11 Stemi involving Of [employer] [facility] [place] M.D., FACC, right coronary FSCAI artery I25.10 Athscl heart disease of [place] coronary artery w/o ang pctrs Office Visit 06/10/2019 4:13p [facility] Sha Alcala I21.11 Stemi involving Of [employer] AT [place] MD Pasquale, right coronary FACC, FSCAI artery I10 Essential (primary) hypertension E78.5 Hyperlipidemia, unspecified I25.10 Athscl heart disease of [place] coronary artery w/o ang pctrs Assessments Date [...] St elevation (Stemi) myocardial Sha Giordano MD, [facility] , infarction involving right coronary FSCAI artery 06/14/[address] elevation (Stemi) myocardial Ewelina Parra ESTABLISHMENT GUIDE infarction involving right coronary artery 06/14/2019 I25.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 Ewelina Parra ESTABLISHMENT GUIDE [place] coronary artery without angina pectoris 06/14/2019 I25.5 Ischemic cardiomyopathy Ewelina Hollandsander, ESTABLISHMENT GUIDE 06/14/2019 E78.5 Hyperlipidemia, unspecified Ewelina Parra, ESTABLISHMENT GUIDE 06/13/2019 R94.31 Abnormal electrocardiogram [ECG] [EKG] Landon Berman M.D., [facility], [facility] 06/13/[address] elevation (Stemi) myocardial Matt Bonds M.D., [facility], infarction involving right coronary FSCAI artery 06/13/2019 I25.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 Matt Bonds M.D., [facility], [place] coronary artery without angina FSCAI pectoris 06/12/2019 R94.31 Abnormal electrocardiogram [ECG] [EKG] Landon Berman M.D., [facility], [facility] 06/12/[address] elevation (Stemi) myocardial Matt Bonds M.D., [facility], infarction involving right coronary FSCAI artery 06/12/2019 I25.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 Matt Bonds M.D., [facility], [place] coronary artery without angina FSCAI pectoris 06/11/2019 R94.31 Abnormal electrocardiogram [ECG] [EKG] Rodrick Pyle M.D. 06/11/[address] elevation (Stemi) myocardial Otis Wayne M.D. infarction involving right coronary artery 06/11/[address] elevation (Stemi) myocardial Matt Bonds M.D., [facility], infarction involving right coronary FSCAI artery 06/11/2019 I25.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 Matt Bonds M.D., [facility], [place] coronary artery without angina FSCAI pectoris 06/10/2019 R94.31 Abnormal electrocardiogram [ECG] [EKG] Landon Berman M.D., [facility], [facility] 06/10/[address] elevation (Stemi) myocardial Sha Giordano MD, [facility] , infarction involving right coronary FSCAI artery 06/10/2019 I10 Essential (primary) hypertension Sha Giordano MD, [facility], [facility] 06/10/2019 E78.5 Hyperlipidemia, unspecified Sha Giordano MD, [facility], [facility] 06/10/2019 I25.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 Sha Giordano MD, [facility], [place] coronary artery without angina FSCAI pectoris Plan of Treatment 07/12/2019 - Addi Cordova DO FACCI25.2 Old myocardial infarctionFollow up: Schedule cardiac MRI at [facility] (not [facility]) Please give patient number for cardiac rehab Follow up after MRII25.5 Ischemic cardiomyopathyNew Xrays:MRI Cardiac W/ & W/O Contrast, Ordered: 07/12/19E78.5 Hyperlipidemia, [id number] Essential (primary) rheulwaeyvroZ98.01 Impaired fasting yyagtimW58.1 Congenital insufficiency of aortic valve Functional Status Description No Information Available Mental Status Description No Information Available Referrals Refer to Reason for Referral Status Appt Date Created
--- OUTSIDE RECORDS SUMMARY | 2019-07-21 09:05 | XMS REPORT | Continuity of Care Document ---
:1985 External Reference #:[id number] Author Name Rodrick Pyle M.D. 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 Active Problems Provider Date Acute myocardial infarction due to Sha Giordano MD, [facility], Onset: 2019 right coronary artery [...] Cordova, 90mg Tablets twice a day DO [facility] Jardiance 1/2 by mouth Unknown 25mg Tablets every day Medications Administered in Office Medication SIG Qnty Indications Ordering Provider Date Technetium TC 99M Addi DestineeHeath Cordova, DO [facility] 07/04/2019 Tetrofosmin, Per Unit Dose Up To 40 Millicuries Injection Technetium TC 99M Addi SHeath Cordova, DO [facility] 07/04/2019 Tetrofosmin, Per Unit Dose [...] Result H/L Range Note Basic Metabolic 07/11/2019 [facility] Sodium 138 mmol/L Normal 135-145 Panel [address] [place] [address] [phone] Potassium 4.0 mmol/L Normal 3.5-5.0 Chloride 105 mmol/L Normal 101-111 Co2 Carbon Dioxide 26 mmol/L Normal 22-32 Anion Gap 7 mmol/L Normal 2-11 Glucose 86 mg/dL Normal 70-100 Blood Urea Nitrogen 17 mg/dL Normal 6-24 Creatinine 1.09 mg/dL Normal 0.67-1.17 BUN/Creatinine Ratio 15.6 Normal 8-20 Calcium 9.5 mg/dL Normal 8.6-10.3 Egfr Non- 76.5 >60 Egfr 92.6 >60 1 Laboratory test 07/11/2019 [facility] Ast (Sgot) 28 U/L Normal 13-[address] [place] [address] [phone] Alt (SGPT) 55 U/L High 7-52 Creatine Kinase(CK) 125 U/L Normal 10-223 Lipid Profile 07/11/2019 [facility] Triglycerides 134 mg/dL 2 (Trig/Chol/HDL) [address] [place] [address] [phone] Cholesterol 126 mg/dL 3 HDL Cholesterol 30.5 [...] >189 Procedures Date Code Description Status 07/04/2019 86816 Stress Test Completed 07/04/2019 95207 Myocardial Perfusion Imaging Tomographic (Spect) Multiple Completed Studies 06/13/2019 72501 EKG, Interpretation Only Completed 06/12/2019 02465 EKG, Interpretation Only Completed 06/11/2019 42654 ECHO Transthorasic Realtime 2D W Doppler & Color Flow Hosp Completed 06/11/2019 86153 EKG, Interpretation Only Completed 06/10/2019 04607 Left Heart Cath. Incl S/I Coronaries, Angio S/I V Gram If Completed Done 06/10/2019 33794 EKG, Interpretation Only Completed 06/10/2019 71555 Revascularization Acute Total/Subtotal Occlusion Completed Medical Devices Description No Information Available Encounters Type Date Location Provider Dx Diagnosis Office Visit 07/03/2019 [facility] Addi Cordova, R07.9 Chest pain, 10:00a Of Private Watchman DO FACC unspecified I25.2 Old myocardial infarction E78.5 Hyperlipidemia, unspecified I10 Essential (primary) hypertension I25.5 Ischemic cardiomyopathy R73.01 Impaired fasting glucose Office Visit 06/20/2019 3:40p [facility] Sha Alcala I21.11 Stemi involving Of Private Watchman AT [facility] MD Pasquale, right coronary FACC, FSCAI artery Office Visit 06/14/2019 4:11p [facility] Ewelina Parra I21.11 Stemi involving Of Private Watchman AT [facility] [employer]PERINTENDENT [employer] right coronary artery I25.10 Athscl heart disease of [place] coronary artery w/o ang pctrs I25.5 Ischemic cardiomyopathy E78.5 Hyperlipidemia, unspecified Office Visit 06/13/2019 11:45a [facility] Matt Bonds, I21.11 Stemi involving Of Private Watchman AT [facility] M.D., FACC, right coronary FSCAI artery I25.10 Athscl heart disease of [place] coronary artery w/o ang pctrs Office Visit 06/12/2019 11:47a [facility] Matt Bonds, I21.11 Stemi involving Of Private Watchman AT [facility] M.D., FACC, right coronary FSCAI artery I25.10 Athscl heart disease of [place] coronary artery w/o ang pctrs Office Visit 06/11/2019 11:40a [facility] Matt Bonds, I21.11 Stemi involving Of Private Watchman AT [facility] M.D., FACC, right coronary FSCAI artery I25.10 Athscl heart disease of [place] coronary artery w/o ang pctrs Office Visit 06/10/2019 4:13p [facility] Sha Alcala I21.11 Stemi involving Of Private Watchman AT [facility] MD Pasquale, right coronary FACC, FSCAI artery I10 Essential (primary) hypertension E78.5 Hyperlipidemia, unspecified I25.10 Athscl heart disease of [place] coronary artery w/o ang pctrs Assessments Date [...] St elevation (Stemi) myocardial Sha Giordano MD, [facility] , infarction involving right coronary FSCAI artery 06/14/[address] elevation (Stemi) myocardial Ewelinamasha Parra, [employer] infarction involving right coronary artery 06/14/2019 I25.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 Ewelina Parra [employer] [place] coronary artery without angina pectoris 06/14/2019 I25.5 Ischemic cardiomyopathy Ewelina Parra, [employer] 06/14/2019 E78.5 Hyperlipidemia, unspecified Ewelinamasha Parra, [employer] 06/13/2019 R94.31 Abnormal electrocardiogram [ECG] [EKG] Landon Berman M.D., [facility], [facility] 06/13/[address] elevation (Stemi) myocardial Matt Bonds M.D., [facility], infarction involving right coronary FSCAI artery 06/13/2019 I25.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 Matt Bonds M.D., [facility], [place] coronary artery without angina FSCAI pectoris 06/12/2019 R94.31 Abnormal electrocardiogram [ECG] [EKG] Landon Berman M.D., [facility], [facility] 06/12/[address] elevation (Stemi) myocardial Matt Bonds M.D., [facility], infarction involving right coronary FSCAI artery 06/12/2019 I25.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 Matt Bonds M.D., [facility], [place] coronary artery without angina FSCAI pectoris 06/11/2019 R94.31 Abnormal electrocardiogram [ECG] [EKG] Rodrick Pyle M.D. 06/11/[address] elevation (Stemi) myocardial Otis Wayne M.D. infarction involving right coronary artery 06/11/[address] elevation (Stemi) myocardial Matt Bonds M.D., [facility], infarction involving right coronary FSCAI artery 06/11/2019 I25.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 Matt Bonds M.D., [facility], [place] coronary artery without angina FSCAI pectoris 06/10/2019 R94.31 Abnormal electrocardiogram [ECG] [EKG] Landon Berman M.D., [facility], [facility] 06/10/[address] elevation (Stemi) myocardial Sha Giordano MD, [facility] , infarction involving right coronary FSCAI artery 06/10/2019 I10 Essential (primary) hypertension Sha Giordano MD, [facility], [facility] 06/10/2019 E78.5 Hyperlipidemia, unspecified Sha Giordano MD, [facility], [facility] 06/10/2019 I25.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 Sha Giordano MD, [facility], [place] coronary artery without angina FSCAI pectoris Plan of Treatment 07/12/2019 - Addi Cordova, FACCI25.2 Old myocardial infarctionFollow up: Schedule cardiac MRI at [facility] (not [facility]) Please give patient number for cardiac rehab Follow up after MRII25.5 Ischemic cardiomyopathyNew Xrays:MRI Cardiac W/ & W/O Contrast, Ordered: 07/12/19E78.5 Hyperlipidemia, [id number] Essential (primary) mblprdmhbvuiD62.01 Impaired fasting ohktrqyK09.1 Congenital insufficiency of aortic valve Functional Status Description No Information Available Mental Status Description No Information Available Referrals Refer to Reason for Referral Status Appt Date Created
--- OUTSIDE RECORDS SUMMARY | 2019-07-21 09:05 | XMS REPORT | Continuity of Care Document ---
:1985 External Reference #:[id number] Author Name Addi Cordova, DO [facility] (transmitted by agent of provider Ninfa Aguilar) Address [address] [place] [address] Care Team Providers Name Role Phone Homar Reardon MD - Endocrinology, Care Team Information Senior [employer] Diabetes & Metabolism Problems Active Problems Provider [...] Medications SIG Qnty Indications Ordering Provider Date Losartan Potassium 1 by mouth every 30tabs I10 Addi Cordova, 07/03/2019 25mg day DO [facility]ACC Tablets Tylenol 2 tablets every 4 Unknown 325mg Capsules hours as needed for pain Aspirin 81 Low Dose 1 by mouth every Unknown day 81mg Chewtabs Metoprolol Succinate 1 by mouth twice Unknown ER every day 25mg Tablets ER 24HR Atorvastatin Calcium 1 by mouth every Unknown day 80mg Tablets Nitrostat dissolve 1 tablet Unknown 0.4mg Tablets under the tongue Sub every 5 minutes up to 3 doses as needed replace every 12 months Brilinta 1 tab by mouth Unknown 90mg Tablets twice a day Jardiance 1 by mouth every Unknown 25mg Tablets day Immunizations Description No Information Available Vital [...] Available Procedures Date Code Description Status 06/11/2019 25122 ECHO Transthorasic Realtime 2D W Doppler & Color Flow Hosp Completed 06/10/2019 07449 Left Heart Cath. 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 FACC unspecified I25.2 Old myocardial infarction E78.5 Hyperlipidemia, unspecified I10 Essential (primary) hypertension I25.5 Ischemic cardiomyopathy Office Visit 06/20/2019 3:40p [facility] Sha Alcala I21.11 Stemi involving Of Clothing Presser AT [facility] MD Pasquale, right coronary FACC, FSCAI artery Office Visit 06/14/2019 4:11p [facility] Ewelina Parra, I21.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 coronary artery I25.10 Athscl heart disease of [place] coronary artery w/o ang pctrs I25.5 Ischemic cardiomyopathy E78.5 Hyperlipidemia, unspecified Office Visit 06/13/2019 11:45a [facility] Matt Bonds, I21.11 Stemi involving Of Clothing Presser AT [facility] [place], FACC, right coronary FSCAI artery I25.10 Athscl heart disease of [place] coronary artery w/o ang pctrs Office Visit 06/12/2019 11:47a [facility] Matt Bonds, I21.11 Stemi involving Of Clothing Presser AT [facility] [place], FACC, right coronary FSCAI artery I25.10 Athscl heart disease of [place] coronary artery w/o ang pctrs Office Visit 06/11/2019 11:40a [facility] Matt Bonds, I21.11 Stemi involving Of Clothing Presser AT [facility] [place], FACC, right coronary FSCAI artery I25.10 Athscl heart disease of [place] coronary artery w/o ang pctrs Office Visit 06/10/2019 4:13p [facility] Sha Alcala I21.11 Stemi involving Of Clothing Presser AT [facility] MD Pasquale, right coronary FACC, FSCAI artery I10 Essential (primary) hypertension E78.5 Hyperlipidemia, unspecified I25.10 Athscl heart disease of [place] coronary artery w/o ang pctrs Assessments Date Code Description Provider 07/03/2019 R07.9 Chest pain, unspecified Addi Cordova, DO [facility] 07/03/2019 I25.2 Old myocardial infarction Addi Cordova, DO [facility] 07/03/2019 E78.5 Hyperlipidemia, unspecified Addi Cordova, DO [facility] 07/03/2019 I10 Essential (primary) hypertension Addi Cordova, DO FACC 07/03/2019 I25.5 Ischemic cardiomyopathy Addi Cordova, DO [facility] 06/20/[address] elevation (Stemi) myocardial Sha Giordano MD, [facility] , infarction involving right coronary FSCAI artery 06/14/[address] elevation (Stemi) myocardial Ewelina Thuman, BUSINESS ADMINISTRATION INSTRUCTOR infarction involving right coronary artery 06/14/2019 I25.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 Ewelina Parra BUSINESS ADMINISTRATION INSTRUCTOR [place] coronary artery without angina pectoris 06/14/2019 I25.5 Ischemic cardiomyopathy Ewelina Thuman, BUSINESS ADMINISTRATION INSTRUCTOR 06/14/2019 E78.5 Hyperlipidemia, unspecified Ewelina Thuman, BUSINESS ADMINISTRATION INSTRUCTOR 06/13/[address] elevation (Stemi) myocardial Matt Bonds M.D., FACC, FSCAI infarction involving right coronary artery 06/13/2019 I25.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 Matt Bonds M.D., [facility], [facility] [place] coronary artery without angina pectoris 06/12/[address] elevation (Stemi) myocardial Matt Bonds M.D., [facility], [facility] infarction involving right coronary artery 06/12/2019 I25.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 Matt Bonds M.D., [facility], [facility] [place] coronary artery without angina pectoris 06/11/[address] elevation (Stemi) myocardial Otis Wayne M.D. infarction involving right coronary artery 06/11/[address] elevation (Stemi) myocardial Matt Bonds M.D., [facility], [facility] infarction involving right coronary artery 06/11/2019 I25.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 Matt Bonds M.D., [facility], [facility] [place] coronary artery without angina pectoris 06/10/[address] elevation (Stemi) myocardial Sha Giordano MD, [facility] , infarction involving right coronary FSCAI artery 06/10/2019 I10 Essential (primary) hypertension Sha Giordano MD, [facility], [facility] 06/10/2019 E78.5 Hyperlipidemia, unspecified Sha Giordano MD, [facility], [facility] 06/10/2019 I25.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 Sha Giordano MD, [facility], [place] coronary artery without angina FSCAI pectoris Plan of Treatment Future Appointment(s):07/12/2019 8:00 am - Addi Cordova DO [facility] at [facility]07/04/2019 9:30 am - Addi Cordova DO FACC at [facility]07/03/2019 - Addi Cordova DO FACCR07.9 Chest pain, unspecifiedNew Orders:Stress Test, Exercise Nuclear, Ordered: 07/03/19New Therapy:Cardiac RehabComments:Start taking low dose losartan 25 mg once a day.Have non-fasting blood work in 1 week after startingFollow up:Please contact cardiac rehab and have patient be scheduled f/u after stress testI25.2 Old myocardial ciqlhmiqutY71.5 Hyperlipidemia, unspecifiedNew Labs:Ast (Sgot), Ordered: 07/03/19Alt, Ordered: 07/03/19Creatine Kinase(CK), Ordered: Lipid Profile (Trig/Chol/HDL), Ordered: 07/03/19I10 Essential (primary) hypertensionNew Medication:Losartan Potassium 25 mg - 1 by mouth every dayNew Labs:Basic Metabolic Panel, Ordered: 07/03/19I25.5 Ischemic cardiomyopathy Functional Status Description No Information Available Mental Status Description No Information Available Referrals Refer to Dr Reason for Referral Status Appt Date Created
[2019-07-21] MEDS ORDERED: Iohexol 350* (CONTRAST) 500 ML MDV IV ONE (09:41)
[2019-07-21] MEDS ORDERED: Nitroglycerin TAB 0.4 MG* 0.4 MG TAB SL ONE (09:57)
[2019-07-21 15:10] VITALS: BP 115/67
== END 2019-07-21 15:09 | disposition home or self-care (01) ==
LOC: ED 07:46
DX: R07.89 Other chest pain (principal); M54.12 Radiculopathy, cervical region; R00.1 Bradycardia, unspecified; I10 Essential (primary) hypertension; I25.2 Old myocardial infarction; Z95.5 Presence of coronary angioplasty implant and graft; Z79.82 Long term (current) use of aspirin; Z79.899 Other long term (current) drug therapy; Z82.49 Family history of ischemic heart disease and other diseases of the circulatory system; Z72.0 Tobacco use
CPT/HCPCS: 36415; 71046; 71275; 80053; 84484; 85025; 85610; 93005; 99284; A9270-GY; Q9967